=== PATIENT | female | born 1990 | race Caucasian/White ===

== ENCOUNTER 2017-05-09 15:26 | Emergency (ER) | payer MEDICAID ==
[~2017-05-09] VITALS: Ht 152.4 cm; Wt 81.6 kg
[~2017-05-09 15:26] MED LIST: AA/A14DR7 OT; ACE3 PO; ACET-1966 PO; ACET-3017 PO; ADV100/50 INH; ALB17R INH; AMO500 PO; AMOX-559 PO; ANTIBIOTIC; AUG875 PO; AZI250 PO; BACDS PO; BEN100 PO; BUPR-472 PO; CEP500 PO; CEPH500C24 PO; CEPH500T7 PO; CIP500 PO; CITA-137 PO; CLIN150C15 PO; CYC10 PO; CYCL10TA29 PO; DIC50 PO; DICY-42 PO; DOXY20PT PO; ESCI20TA38 PO; ETON68IM SQ; FIO PO; FLU100 FT; FLUO-201 PO; GABA-490 PO; GABA-549 PO; GUAI1200 PO; HYDR-3140 PO; HYDR-4309 PO; HYDR25CA83 PO; HYDR473S4 PO; IBU200 PO; IBU600 PO; IBU800 PO; IBUP-1618 PO; KET10 PO; LACT1CAP6 PO; LANS30CA70 PO; LEV112 PO; LEVO-3 PO; LEVO100V IVP; LEVO1IUD2 VG; LEVO75TA73 PO; LOM PO; LOR5 PO; LOR5/325 PO; MED150I IM; MET10 PO; METH-543 PO; METR-1 PO; MULT-885 PO; MULT1CAP41 PO; NAP500 PO; NAP550 PO; NARA2.5T2 PO; NIT100 PO; NOR10 PO; NORG1TAB74 PO; OMEP40CA48 PO; OND4 PO; ONDA4TAB PO; ONDA4TAB97 PO; OXYC1TAB54 PO; PAN40 PO; PANT40SU3 PO; PARO-243 PO; PARO-46 PO; PARO25TA; PER PO; PHEN-529 PO; PHEN120S18 PO; PRE10 PO; PRE20 PO; PREN-127 PO; PROP100T2 PO; SUMA25TA26 PO; TOPI-23 PO; TOPI50TA92 PO; TRA50 PO; TRAM-420 PO; TRAM-627 PO; [UNRECOGNIZED DRUG - CODE] MM; [UNRECOGNIZED DRUG - CODE] PO; [UNRECOGNIZED DRUG - CODE] PO; [UNRECOGNIZED DRUG - OTHER] PO; implanon
--- NOTE | 2017-05-09 15:29 | ER Report ---
History and Physical Time Seen By MD: 15:28 HPI/ROS CC: Vaginal bleeding HPI: 27-year-old female with the past medical history of low back pain, GI bleed, migraine, head injury, ovarian cyst, vaginal bleeding, UTI, foot surgery, hypothyroidism. Patient presents to the emergency department with vaginal bleeding and right lower quadrant abdominal cramping comes in saying it as an 8 out of 10. She's been nauseated without emesis. She states that it started with vaginal bleeding on 04/30/2016 and lasted for about 3 days. She then stopped her vaginal bleeding but the pain continued. Then for the last 2 days she's had heavy vaginal bleeding. She states that she is going through to heavy pads a day. She states normally she only has one pad for her menstrual cycle. She also states that her menses should not be ongoing at this time as she is usually regular. Movement and activity makes worse rest makes it somewhat better. ROS: 12 point review of systems essentially negative other than what's mentioned in history of present illness. NURSES AND OLD MEDICAL RECORDS: Reviewed PMH: Reviewed SURGICAL HX: Reviewed FAMILY HX: Noncontributory SOCIAL HX: She denies smoking alcohol or illicit drugs. She is and lives at home. VITAL SIGNS: Reviewed CONSTITUTIONAL: 27 year old female in minimal to moderate distress. PHYSICAL EXAM: HEENT: Pupils equal round reactive to light and accommodate, EOMI, tympanic membranes pearly white umbo present with good light reflex. Lips dry mucous membranes moist gums nonbleeding uvula midline and rises equally with phonation, oropharynx noninjected, teeth intact. NECK: Neck supple, thyroid not appreciated, anterior and posterior cervical lymphadenopathy not appreciated. Trachea midline and rises equally with phonation. CARDIAC: S1-S2 regular rate rhythm no murmurs rubs or gallops. LUNGS: Lungs clear bilaterally posteriorly in all tran. Good air movement. ABDOMEN: Abdomen soft, nondistended, no carotid tenderness no rebound tenderness, bowel sounds active in all 4 quadrants, no bruits noted, no CVA tenderness. PELVIC: Closed cervix slight brownish mucus. Patient was nontender with pelvic exam. MUSCULOSKELETAL: Strength 5 out of 5 x 4 extremities, no deformities noted. NEUROLOGIC: Patient alert and oriented by 3 Allergies: Coded Allergies: promethazine (Verified Allergy, Intermediate, RASH, 02/23/17) latex (Verified Allergy, Mild, RASH, 02/23/17) pertussis vaccine,fluid (Verified Adverse Reaction, Intermediate, PAIN/ FEVER, 02/23/17) Home Meds Active Scripts Tramadol Hcl (TRAMADOL HCL) 50 Mg Tablet, 50-100 MG PO Q6H Y for PAIN, #20 TAB Prov:WILD YING DO 05/18/16 Reported Medications Paroxetine Hcl (PAROXETINE HCL) 20 Mg Tablet, 20 MG PO QHS 11/12/16 Nortriptyline Hcl (NORTRIPTYLINE HCL) 10 Mg Cap, 10 MG PO HS, CAP 11/12/16 Topiramate (TOPIRAMATE) 50 Mg Tablet, 50 MG PO BID 11/12/16 Omeprazole (OMEPRAZOLE) 40 Mg Capsule.dr, 40 MG PO QDAY, CAP 11/12/16 Levothyroxine Sodium (LEVOTHYROXINE SODIUM) 75 Mcg Tablet, 75 MCG PO QDAY, TAB 07/27/16 Discontinued Reported Medications Norgestimate-Ethinyl Estradiol (SPRINTEC) 1 Each Tablet, 1 EACH PO QDAY 11/12/16 Hx Smoking: Yes (1/2 PPD X 5 YEARS) Smoking Status: Current: Every Day Smoker Exposure to Second Hand Smoke?: No Hx Substance Use Disorder: No Hx Alcohol Use: No Constitutional Vital Sign - Last 24 Hours 05/09/17 15:32 Pulse 87 Resp 18 B/P (MAP) 142/110 Pulse Ox 94 O2 Delivery Room Air Medical Decision Making Data Points Result Diagram: 05/09/17 1555 05/09/17 1555 Laboratory Hematology Test 05/09/17 15:35 05/09/17 15:55 Urine Color Yellow Urine Clarity Clear Urine pH 7.0 pH (4.8-9.5) Urine Specific [place] 1.015 Urine Protein Negative mg/dL (NEGATIVE) Urine Glucose (UA) Negative mg/dL (NEGATIVE) Urine Ketones Negative mg/dL (NEGATIVE) Urine Blood Small (NEGATIVE) Urine Nitrite Negative (NEGATIVE) Urine Bilirubin Negative (NEGATIVE) Urine Urobilinogen Negative mg/dL (0.2-1.9) Urine Leukocyte Esterase Negative (NEGATIVE) Urine RBC 5 /HPF (0-2/HPF) Urine WBC 1 /HPF (0-5/HPF) Urine Squamous Epithelial Cells Many /LPF (</=FEW) Urine Transitional Epithelial Cells Few /LPF (NONE-FEW) Urine Bacteria Negative /HPF (NONE-FEW) Urine Mucus None /HPF (NONE-FEW) Red Blood Count 4.66 M/uL (4.17-5.56) Mean Corpuscular Volume 90.0 fL (80.0-96.0) Mean Corpuscular Hemoglobin 31.1 pg (26.0-33.0) Mean Corpuscular Hemoglobin Concent 34.6 g/dL (32.0-36.0) Red Cell Distribution Width 12.8 % (11.5-14.5) Mean Platelet Volume 9.0 fL (7.2-11.1) Neutrophils (%) (Auto) 57.6 % (39.4-72.5) Lymphocytes (%) (Auto) 33.2 % (17.6-49.6) Monocytes (%) (Auto) 6.2 % (4.1-12.4) Eosinophils (%) (Auto) 2.5 % (0.4-6.7) Basophils (%) (Auto) 0.5 % (0.3-1.4) Nucleated RBC Relative Count (auto) 0.0 /100WBC Neutrophils # (Auto) 3.7 K/uL (2.0-7.4) Lymphocytes # (Auto) 2.1 K/uL (1.3-3.6) Monocytes # (Auto) 0.4 K/uL (0.3-1.0) Eosinophils # (Auto) 0.2 K/uL (0.0-0.5) Basophils # (Auto) 0.0 K/uL (0.0-0.1) Nucleated RBC Absolute Count (auto) 0.00 K/uL Prothrombin Time 14.2 seconds (12.0-14.4) Prothromb Time International Ratio 1.09 Activated Partial Thromboplast Time 34 seconds (23-35) Sodium Level 137 mmol/L (137-145) Potassium Level 3.6 mmol/L (3.5-5.0) Chloride Level 105 mmol/L (98-107) Carbon Dioxide Level 22 mmol/L (22-31) Blood Urea Nitrogen 7 mg/dl (7-18) Creatinine 0.70 mg/dl (0.52-1.04) Glomerular Filtration Rate Calc > 60.0 Random Glucose 80 mg/dl (75-110) Calcium Level 8.6 mg/dl (8.4-10.2) Total Bilirubin 0.4 mg/dl (0.2-1.3) Aspartate Amino Transf (AST/SGOT) 23 U/L (0-35) Alanine Aminotransferase (ALT/SGPT) 46 U/L (0-56) Alkaline Phosphatase 88 U/L (0-126) Total Protein 7.0 gm/dl (6.3-8.2) Albumin 3.8 g/dl (3.5-5.0) Human Chorionic Gonadotropin, Qual Negative (NEGATIVE) Human Chorionic Gonadotropin, Quant < 2 mIU/ml Chemistry Test 05/09/17 15:35 05/09/17 15:55 Urine Color Yellow Urine Clarity Clear Urine pH 7.0 pH (4.8-9.5) Urine Specific [place] 1.015 Urine Protein Negative mg/dL (NEGATIVE) Urine Glucose (UA) Negative mg/dL (NEGATIVE) Urine Ketones Negative mg/dL (NEGATIVE) Urine Blood Small (NEGATIVE) Urine Nitrite Negative (NEGATIVE) Urine Bilirubin Negative (NEGATIVE) Urine Urobilinogen Negative mg/dL (0.2-1.9) Urine Leukocyte Esterase Negative (NEGATIVE) Urine RBC 5 /HPF (0-2/HPF) Urine WBC 1 /HPF (0-5/HPF) Urine Squamous Epithelial Cells Many /LPF (</=FEW) Urine Transitional Epithelial Cells Few /LPF (NONE-FEW) Urine Bacteria Negative /HPF (NONE-FEW) Urine Mucus None /HPF (NONE-FEW) White Blood Count 6.4 k/uL (4.5-11.0) Red Blood Count 4.66 M/uL (4.17-5.56) Hemoglobin 14.5 g/dL (12.0-16.0) Hematocrit 41.9 % (34.0-47.0) Mean Corpuscular Volume 90.0 fL (80.0-96.0) Mean Corpuscular Hemoglobin 31.1 pg (26.0-33.0) Mean Corpuscular Hemoglobin Concent 34.6 g/dL (32.0-36.0) Red Cell Distribution Width 12.8 % (11.5-14.5) Platelet Count 281 K/uL (150-450) Mean Platelet Volume 9.0 fL (7.2-11.1) Neutrophils (%) (Auto) 57.6 % (39.4-72.5) Lymphocytes (%) (Auto) 33.2 % (17.6-49.6) Monocytes (%) (Auto) 6.2 % (4.1-12.4) Eosinophils (%) (Auto) 2.5 % (0.4-6.7) Basophils (%) (Auto) 0.5 % (0.3-1.4) Nucleated RBC Relative Count (auto) 0.0 /100WBC Neutrophils # (Auto) 3.7 K/uL (2.0-7.4) Lymphocytes # (Auto) 2.1 K/uL (1.3-3.6) Monocytes # (Auto) 0.4 K/uL (0.3-1.0) Eosinophils # (Auto) 0.2 K/uL (0.0-0.5) Basophils # (Auto) 0.0 K/uL (0.0-0.1) Nucleated RBC Absolute Count (auto) 0.00 K/uL Prothrombin Time 14.2 seconds (12.0-14.4) Prothromb Time International Ratio 1.09 Activated Partial Thromboplast Time 34 seconds (23-35) Glomerular Filtration Rate Calc > 60.0 Calcium Level 8.6 mg/dl (8.4-10.2) Total Bilirubin 0.4 mg/dl (0.2-1.3) Aspartate Amino Transf (AST/SGOT) 23 U/L (0-35) Alanine Aminotransferase (ALT/SGPT) 46 U/L (0-56) Alkaline Phosphatase 88 U/L (0-126) Total Protein 7.0 gm/dl (6.3-8.2) Albumin 3.8 g/dl (3.5-5.0) Human Chorionic Gonadotropin, Qual Negative (NEGATIVE) Human Chorionic Gonadotropin, Quant < 2 mIU/ml Coagulation Test 05/09/17 15:55 Prothrombin Time 14.2 seconds Prothromb Time International Ratio 1.09 Activated Partial Thromboplast Time 34 seconds Urinalysis Test 05/09/17 15:35 Urine Color Yellow Urine Clarity Clear Urine pH 7.0 pH (4.8-9.5) Urine Specific [place] 1.015 Urine Protein Negative mg/dL (NEGATIVE) Urine Glucose (UA) Negative mg/dL (NEGATIVE) Urine Ketones Negative mg/dL (NEGATIVE) Urine Blood Small (NEGATIVE) Urine Nitrite Negative (NEGATIVE) Urine Bilirubin Negative (NEGATIVE) Urine Urobilinogen Negative mg/dL (0.2-1.9) Urine Leukocyte Esterase Negative (NEGATIVE) Urine RBC 5 /HPF (0-2/HPF) Urine WBC 1 /HPF (0-5/HPF) Urine Squamous Epithelial Cells Many /LPF (</=FEW) Urine Transitional Epithelial Cells Few /LPF (NONE-FEW) Urine Bacteria Negative /HPF (NONE-FEW) Urine Mucus None /HPF (NONE-FEW) EKG/Imaging Imaging Ultrasound reveals ovarian cyst no other abnormalities. ED Course/Re-evaluation ED Course MDM includes ovarian cyst, , tubal , missed AB. This is most likely ovarian cyst. Decision to Disposition Date: May 09, 2017 Decision to Disposition Time: 17:10 Depart Departure Latest Vital Signs Vital Signs Date Time Temp Pulse Resp B/P (MAP) Pulse Ox O2 Delivery O2 Flow Rate FiO2 05/09/17 15:32 87 18 142/110 94 Room Air Impression: Primary Impression: Menstrual cramps Additional Impression: Ovarian cyst Condition: Improved Disposition: HOME OR SELF-CARE Referrals: TAPAN MEYER MD (PCP) Patient Instructions: Ovarian Cyst (DC) Additional Instructions: Follow-up with regular physician. Ibuprofen for the cramps. Problem Qualifiers RICHAR STEVENSON MD May 09, 2017 15:29
[2017-05-09] MEDS ORDERED: NS(*) 0.9% 1000 ML BAG 1,000 ML IV ONE (15:46)
[2017-05-09] MEDS ORDERED: ONDANSETRON 4 MG/2 ML VIAL IVP ONE (15:50)
[2017-05-09 16:00] VITALS: BP 118/79
[2017-05-09 16:09] LABS: PLATELET COUNT, AUTOMATED 281 K/uL (150-450)
[2017-05-09 16:19] LABS: INR 1.09
--- NOTE | 2017-05-09 17:36 | RADIOLOGY IMAGING REPORT ---
FACILITY: [facility] [place]IENT NAME: Felix Ghosh : 1990 MR: [id number] V: [id number] EXAM DATE: ORDERING PHYSICIAN: RICHAR STEVENSON TECHNOLOGIST: Location: [facility] - [place] Patient: Felix Ghosh : 1990 Visit/Account:[id number] Date of Sevice: 05/09/2017 EXAMINATION: Transvaginal pelvic ultrasound with duplex Doppler evaluation. HISTORY: Vaginal bleeding. Pain. COMPARISON: CT abdomen/pelvis with contrast 01/14/2017. Pelvic ultrasound 07/27/2016. LMP: 04/15/2017. Findings: Normal uterine size and morphology. The uterus is anteverted in position and measures 7.0 x 3.1 x 4. 2 cm. No focal uterine mass. The endometrium is homogeneous in appearance and measures 3 mm in double wall thickness. The right ovary measures 2.9 x 1.9 x 3.2 cm and contains multiple small follicles. The right ovary de monstrates normal vascularity with Doppler. The left ovary is suboptimally visualized due to deep positioning. There is a small cystic lesion tami ng the left adnexa, likely localizing to the left ovary. This measures measures approximately 2.0 x 1 .8 cm and contains a small internal daughter cyst measuring 0.7 cm. Likely rim of ovarian tissue surr ounding this cystic structure, with normal vascularity. No other abnormal adnexal masses. No free fluid in the pelvis. IMPRESSION: 1. Suboptimal visualization of the left ovary. A 2.0 cm left adnexal cyst likely localizes to the lef t ovary, containing a small internal daughter cyst. This statistically likely represents a small func tional cyst. Short-term ultrasound follow-up could be performed to evaluate for persistence. A negati ve test should be documented to exclude the possibility of ectopic . 2. Unremarkable uterus and right ovary. 3. No free fluid in the pelvis. Findings were discussed with RICHAR STEVENSON at 05/09/2017 5:29 PM. Report Dictated By: Kushal Hope MD at 05/09/2017 5:18 PM Report E-Signed By: Kushal Hope MD at 05/09/2017 5:33 PM WSN:[id number]
== END 2017-05-09 17:15 | disposition home or self-care (01) ==
LOC: ER 15:31
DX: N83.202 Unspecified ovarian cyst, left side (principal)
CPT/HCPCS: 76830; 81001; 84702; 84703; 85025; 85610; 85730; 86850; 86900; 86901; 96361; 96374; 99284; J2405; J7030; 82040; 82247; 82310; 82374; 82435; 82565; 82947; 84075; 84132; 84155; 84295; 84450; 84460; 84520

== ENCOUNTER 2017-08-29 12:09 | Emergency (ER) | payer MEDICAID ==
[2017-08-29 12:12] VITALS: BP 120/73
[2017-08-29] MEDS ORDERED: AMOX500T10 PO (12:35)
[2017-08-29] MEDS ORDERED: DICL-195 PO (12:35)
--- NOTE | 2017-08-29 12:36 | ER Report ---
History and Physical Time Seen By MD: 12:12 Hx. of Stated Complaint: woke up this morning with right, lower tooth pain. last tooth. states it bleeds when she touches it. doesn't have a dentist HPI/ROS CHIEF COMPLAINT: Toothache HISTORY OF PRESENT ILLNESS: Patient is a 27-year-old female coming by her mother , who presents to ED with complaint of tooth pain that started this morning. She states that she has had trouble thirteenths intermittently. She states she has not seen a dentist or scheduled visit. She denies any fever or swelling. She states that she has taken some ibuprofen and used Orajel with minimal relief. REVIEW OF SYSTEMS: HEENT: See history of present illness. Respiratory: No cough, no dyspnea. Cardiovascular: No chest pain, no palpitations. Musculoskeletal: No back pain. Allergies: Coded Allergies: promethazine (Verified Allergy, Intermediate, RASH, 08/29/17) latex (Verified Allergy, Mild, RASH, 08/29/17) pertussis vaccine,fluid (Verified Adverse Reaction, Intermediate, PAIN/ FEVER, 08/29/17) Home Meds Active Scripts Tramadol Hcl (TRAMADOL HCL) 50 Mg Tablet, 50-100 MG PO Q6H Y for PAIN, #20 TAB Prov:DEONNAWILD M DO 05/18/16 Reported Medications Paroxetine Hcl (PAROXETINE HCL) 20 Mg Tablet, 20 MG PO QHS 11/12/16 Nortriptyline Hcl (NORTRIPTYLINE HCL) 10 Mg Cap, 10 MG PO HS, CAP 11/12/16 Topiramate (TOPIRAMATE) 50 Mg Tablet, 50 MG PO BID 11/12/16 Omeprazole (OMEPRAZOLE) 40 Mg Capsule.dr, 40 MG PO QDAY, CAP 11/12/16 Levothyroxine Sodium (LEVOTHYROXINE SODIUM) 75 Mcg Tablet, 75 MCG PO QDAY, TAB 07/27/16 Reviewed Nurses Notes: Yes Old Medical Records Reviewed: Yes Hx Smoking: Yes (1/2 PPD X 5 YEARS) Smoking Status: Current: Every Day Smoker Exposure to Second Hand Smoke?: No Hx Substance Use Disorder: No Hx Alcohol Use: No Constitutional Vital Sign - Last 24 Hours 08/29/17 12:12 Temp 97.9 Pulse 97 Resp 12 B/P (MAP) 120/73 Pulse Ox 97 O2 Delivery Room Air Physical Exam General Appearance: The patient is alert, has no immediate need for airway protection and no signs of toxicity. Patient appears to be no acute distress. Eyes: Pupils equal and round no pallor or injection. ENT, Mouth: There is pain with palpation of the right lower molar but no surrounding erythema or swelling is appreciated. No obvious dental caries appreciated. Respiratory: There are no retractions, lungs are clear to auscultation. Cardiovascular: Regular rate and rhythm. Skin: Warm and dry, no rashes. Medical Decision Making ED Course/Re-evaluation ED Course It appears patient is having some tooth pain. It is possible that she may have some infectious process so will prescribe antibiotics and diclofenac for pain. Decision to Disposition Date: Aug 29, 2017 Decision to Disposition Time: 12:33 Depart Departure Latest Vital Signs Vital Signs Date Time Temp Pulse Resp B/P (MAP) Pulse Ox O2 Delivery O2 Flow Rate FiO2 08/29/17 12:12 97.9 97 12 120/73 97 Room Air Impression: Primary Impression: Toothache Condition: Improved Disposition: HOME OR SELF-CARE Referrals: TAPAN MEYER MD (PCP) New Scripts Amoxicillin 500 Mg Tab (AMOXICILLIN 500 MG TAB) 500 Mg Tablet 1 TAB PO Q8H, #30 TAB Prov: CHINYERE GIBBONS PA-C 08/29/17 Diclofenac Sodium (DICLOFENAC SODIUM) 75 Mg Tablet. 75 MG PO BID, #12 TAB Prov: CHINYERE GIBBONS PA-C 08/29/17 Departure Forms: Medications Reconciliation, Patient Portal Information, ER Transition Record Patient Instructions: Toothache (ED) Additional Instructions: Stay well-hydrated. Follow-up with dentist as soon as possible. If having any worsening or concerning symptoms may return the Emergency Department. CHINYERE GIBBONS PA-C Aug 29, 2017 12:36
== END 2017-08-29 12:46 | disposition home or self-care (01) ==
LOC: ER 12:10
DX: K08.89 Other specified disorders of teeth and supporting structures (principal); F17.210 Nicotine dependence, cigarettes, uncomplicated
CPT/HCPCS: 99282

== ENCOUNTER 2017-09-29 19:03 | Emergency (ER) | payer SELFPAY ==
[~2017-09-29 19:03] MED LIST changes: +AMOX500T10 PO; +DICL-195 PO
--- NOTE | 2017-09-29 19:19 | ER Report ---
History and Physical Time Seen By MD: 19:18 Hx. of Stated Complaint: patient states that she has buring pain when she urinates; patient also states that she has pain in her lower pubic area; states it started today HPI/ROS CHIEF COMPLAINT: Burning with urination HISTORY OF PRESENT ILLNESS: 27-year-old female patient presents to emergency room with complaint of burning with urination. Patient states that she woke up this morning and when she urinated had burning with urination. Patient states that has persisted throughout the day. She is drink lots of water. She states the burning has become more constant and states that she is having burning all the time. Patient states that she's not had any fevers or chills. She denies having any back pain or nausea. Patient states she did take some ibuprofen for this with no improvement. Allergies: Coded Allergies: promethazine (Verified Allergy, Intermediate, RASH, 08/29/17) latex (Verified Allergy, Mild, RASH, 08/29/17) pertussis vaccine,fluid (Verified Adverse Reaction, Intermediate, PAIN/ FEVER, 08/29/17) Home Meds Active Scripts Phenazopyridine Hcl (PHENAZOPYRIDINE HCL) 100 Mg Tablet, 100 MG PO TID Y for PAIN, #12 TAB Prov:MARKEL GAN [facility] 09/29/17 Sulfamethoxazole/Trimet 800-160 Mg Tab (BACTRIM DS TABLET) 1 Each Tablet, 1 TAB PO Q12H, #14 TAB Prov:MARKEL GAN [facility] 09/29/17 Tramadol Hcl (TRAMADOL HCL) 50 Mg Tablet, 50-100 MG PO Q6H Y for PAIN, #20 TAB Prov:WILD YING DO 05/18/16 Reported Medications Paroxetine Hcl (PAROXETINE HCL) 20 Mg Tablet, 20 MG PO QHS 11/12/16 Nortriptyline Hcl (NORTRIPTYLINE HCL) 10 Mg Cap, 10 MG PO HS, CAP 11/12/16 Topiramate (TOPIRAMATE) 50 Mg Tablet, 50 MG PO BID 11/12/16 Omeprazole (OMEPRAZOLE) 40 Mg Capsule.dr, 40 MG PO QDAY, CAP 11/12/16 Levothyroxine Sodium (LEVOTHYROXINE SODIUM) 75 Mcg Tablet, 75 MCG PO QDAY, TAB 07/27/16 Discontinued Scripts Amoxicillin 500 Mg Tab (AMOXICILLIN 500 MG TAB) 500 Mg Tablet, 1 TAB PO Q8H, # 30 TAB Prov:LAMONTAYAN MALIKPenny Romo PA-C 08/29/17 Diclofenac Sodium (DICLOFENAC SODIUM) 75 Mg Tablet.dr, 75 MG PO BID, #12 TAB Prov:AYAN GIBBONSPenny Romo PA-C 08/29/17 Past Medical/Surgical History Patient has a past medical history of migraines, asthma, volvulus, ovarian cyst , dislocated right hip, arthritis, right elbow fracture,, fracture, hypothyroidism, depression, suicide attempt. Patient has a surgical history of right ankle reconstruction, tonsillectomy, adenoidectomy. Hx Smoking: Yes (1/2 PPD X 5 YEARS) Smoking Status: Current: Every Day Smoker Exposure to Second Hand Smoke?: No Hx Substance Use Disorder: No Hx Alcohol Use: No Constitutional Vital Sign - Last 24 Hours 09/29/17 19:14 Temp 99.5 Pulse 95 Resp 18 B/P (MAP) 117/84 Pulse Ox 97 O2 Delivery Room Air Physical Exam General Appearance: The patient is alert, has no immediate need for airway protection and no current signs of toxicity. ENT: Tympanic membranes are pearly-willoughby, auditory canals are patent, mucous membranes moist. Respiratory: Chest is non tender, lungs are clear to auscultation. Cardiac: regular rate and rhythm Gastrointestinal: Abdomen is soft and non tender, no masses, bowel sounds normal. No CVA tenderness Musculoskeletal: Neck: Neck is supple and non tender. Extremities have full range of motion and are non tender. Skin: No rashes or lesions. DIFFERENTIAL DIAGNOSIS: After history and physical exam differential diagnosis was considered for urinary tract infection, dysuria. Medical Decision Making Data Points Laboratory Hematology Test 09/29/17 19:15 Urine Color Yellow Urine Clarity Slightly-cloudy Urine pH 5.0 pH (4.8-9.5) Urine Specific [place] 1.027 Urine Protein Negative mg/dL (NEGATIVE) Urine Glucose (UA) Negative mg/dL (NEGATIVE) Urine Ketones Negative mg/dL (NEGATIVE) Urine Blood Negative (NEGATIVE) Urine Nitrite Negative (NEGATIVE) Urine Bilirubin Negative (NEGATIVE) Urine Urobilinogen Negative mg/dL (0.2-1.9) Urine Leukocyte Esterase Moderate (NEGATIVE) Urine RBC 1 /HPF (0-2/HPF) Urine WBC 64 /HPF (0-5/HPF) Urine Squamous Epithelial Cells Many /LPF (</=FEW) Urine Transitional Epithelial Cells Many /LPF (NONE-FEW) Urine Bacteria Few /HPF (NONE-FEW) Urine Mucus Few /HPF (NONE-FEW) Chemistry Test 09/29/17 19:15 Urine Color Yellow Urine Clarity Slightly-cloudy Urine pH 5.0 pH (4.8-9.5) Urine Specific [place] 1.027 Urine Protein Negative mg/dL (NEGATIVE) Urine Glucose (UA) Negative mg/dL (NEGATIVE) Urine Ketones Negative mg/dL (NEGATIVE) Urine Blood Negative (NEGATIVE) Urine Nitrite Negative (NEGATIVE) Urine Bilirubin Negative (NEGATIVE) Urine Urobilinogen Negative mg/dL (0.2-1.9) Urine Leukocyte Esterase Moderate (NEGATIVE) Urine RBC 1 /HPF (0-2/HPF) Urine WBC 64 /HPF (0-5/HPF) Urine Squamous Epithelial Cells Many /LPF (</=FEW) Urine Transitional Epithelial Cells Many /LPF (NONE-FEW) Urine Bacteria Few /HPF (NONE-FEW) Urine Mucus Few /HPF (NONE-FEW) Urinalysis Test 09/29/17 19:15 Urine Color Yellow Urine Clarity Slightly-cloudy Urine pH 5.0 pH (4.8-9.5) Urine Specific [place] 1.027 Urine Protein Negative mg/dL (NEGATIVE) Urine Glucose (UA) Negative mg/dL (NEGATIVE) Urine Ketones Negative mg/dL (NEGATIVE) Urine Blood Negative (NEGATIVE) Urine Nitrite Negative (NEGATIVE) Urine Bilirubin Negative (NEGATIVE) Urine Urobilinogen Negative mg/dL (0.2-1.9) Urine Leukocyte Esterase Moderate (NEGATIVE) Urine RBC 1 /HPF (0-2/HPF) Urine WBC 64 /HPF (0-5/HPF) Urine Squamous Epithelial Cells Many /LPF (</=FEW) Urine Transitional Epithelial Cells Many /LPF (NONE-FEW) Urine Bacteria Few /HPF (NONE-FEW) Urine Mucus Few /HPF (NONE-FEW) ED Course/Re-evaluation ED Course Patient was admitted to an exam room, history of physical or obtained. Differential diagnoses were considered. On examination lungs are clear, heart is regular, abdomen soft nontender. Patient had no CVA tenderness. A urinalysis was obtained. Patient was given a dose of Pyridium here in the emergency room to help with her discomfort. Urinalysis shows large leukocyte esterase with 64 white blood cells per high-power field. A culture was ordered. Patient will be prescribed Bactrim DS which she stated twice a day for the next 7 days. We will have him discharge patient home at this time. Patient verbalized understanding and agreement. Decision to Disposition Date: September 29, 2017 Decision to Disposition Time: 19:50 Depart Departure Latest Vital Signs Vital Signs Date Time Temp Pulse Resp B/P (MAP) Pulse Ox O2 Delivery O2 Flow Rate FiO2 09/29/17 19:14 99.5 95 18 117/84 97 Room Air Impression: Primary Impression: Urinary tract infection Condition: Improved Disposition: HOME OR SELF-CARE Referrals: TAPAN MEYER MD (PCP) New Scripts Phenazopyridine Hcl (PHENAZOPYRIDINE HCL) 100 Mg Tablet 100 MG PO TID Y for PAIN, #12 TAB Prov: MARKEL GAN 09/29/17 Sulfamethoxazole/Trimet 800-160 Mg Tab (BACTRIM DS TABLET) 1 Each Tablet 1 TAB PO Q12H, #14 TAB Prov: MARKEL GAN 09/29/17 Patient Instructions: Urinary Tract Infection in Women (ED) Additional Instructions: Increase fluid intake. Get plenty of rest. Follow up with [facility] next week to make sure that the infection has cleared. Return to the ER if condition worsens. Problem Qualifiers Primary Impression: Urinary tract infection Urinary tract infection type: acute cystitis Hematuria presence: without hematuria Qualified Codes: N30.00 - Acute cystitis without hematuria MARKEL GAN September 29, 2017 19:19
[2017-09-29] MEDS ORDERED: PHENAZOPYRIDINE 200 MG TAB PO ONE (19:25)
[2017-09-29] MEDS ORDERED: SULF-198 PO (19:52)
[2017-09-29] MEDS ORDERED: PHEN100T27 PO (19:52)
[2017-09-29 20:01] VITALS: BP 122/77
== END 2017-09-29 20:01 | disposition home or self-care (01) ==
LOC: ER 19:45
DX: N30.00 Acute cystitis without hematuria (principal)
CPT/HCPCS: 81001; 87077; 87088; 87186; 99282

== ENCOUNTER 2017-10-02 15:11 | Emergency (ER) | payer SELFPAY ==
[~2017-10-02 15:11] MED LIST changes: +PHEN100T27 PO; +SULF-198 PO
--- NOTE | 2017-10-02 15:24 | ER Report ---
History and Physical Time Seen By MD: 15:23 HPI/ROS CHIEF COMPLAINT: Abdominal pain HISTORY OF PRESENT ILLNESS: 27-year-old female patient presents to emergency room with complaint of abdominal pain. Patient states that she has been having pain for the last several days. She was seen 3 days ago by myself with complaints of urinary tract infection. She states that the pain has persisted and seems to have gotten worse. She states that the pain is down in the lower pelvis. She denies having any fevers, however she states that she did have chills. She denies any nausea or vomiting. She is concerned that she may need to be on a different antibiotic. She states she does not feel like she is getting any better. Also states that she feels like she is having a lot of burning with urination, she states that she is having significant amounts of pain when urination. REVIEW OF SYSTEMS: Respiratory: No cough, no dyspnea. Cardiovascular: No chest pain, no palpitations. Gastrointestinal: As noted above Musculoskeletal: No back pain. Allergies: Coded Allergies: promethazine (Verified Allergy, Intermediate, RASH, 08/29/17) latex (Verified Allergy, Mild, RASH, 08/29/17) pertussis vaccine,fluid (Verified Adverse Reaction, Intermediate, PAIN/ FEVER, 08/29/17) Home Meds Active Scripts Phenazopyridine Hcl (PHENAZOPYRIDINE HCL) 100 Mg Tablet, 100 MG PO TID Y for PAIN, #12 TAB Prov:MARKEL GAN [facility] 09/29/17 Sulfamethoxazole/Trimet 800-160 Mg Tab (BACTRIM DS TABLET) 1 Each Tablet, 1 TAB PO Q12H, #14 TAB Prov:MARKEL GAN [facility] 09/29/17 Tramadol Hcl (TRAMADOL HCL) 50 Mg Tablet, 50-100 MG PO Q6H Y for PAIN, #20 TAB Prov:WILD YING DO 05/18/16 Reported Medications Paroxetine Hcl (PAROXETINE HCL) 20 Mg Tablet, 20 MG PO QHS 11/12/16 Nortriptyline Hcl (NORTRIPTYLINE HCL) 10 Mg Cap, 10 MG PO HS, CAP 11/12/16 Topiramate (TOPIRAMATE) 50 Mg Tablet, 50 MG PO BID 11/12/16 Omeprazole (OMEPRAZOLE) 40 Mg Capsule.dr, 40 MG PO QDAY, CAP 11/12/16 Levothyroxine Sodium (LEVOTHYROXINE SODIUM) 75 Mcg Tablet, 75 MCG PO QDAY, TAB 07/27/16 Discontinued Scripts Amoxicillin 500 Mg Tab (AMOXICILLIN 500 MG TAB) 500 Mg Tablet, 1 TAB PO Q8H, # 30 TAB Prov:CHINYERE GIBBONS PA-C 08/29/17 Diclofenac Sodium (DICLOFENAC SODIUM) 75 Mg Tablet.dr, 75 MG PO BID, #12 TAB Prov:CHINYERE GIBBONS PA-C 08/29/17 Past Medical/Surgical History Patient has a past medical history of migraines, asthma, volvulus, ovarian cyst , dislocated right hip, arthritis, right elbow fracture, broken tailbone, hypothyroidism, depression. Patient has a surgical history of tonsillectomy and adenoidectomy, reconstruction of right ankle, IUD placed. Patient has a family medical history of cancer, diabetes. Reviewed Nurses Notes: Yes Hx Smoking: Yes (1/2 PPD X 5 YEARS) Smoking Status: Current: Every Day Smoker Exposure to Second Hand Smoke?: No Hx Substance Use Disorder: No Hx Alcohol Use: No Constitutional Vital Sign - Last 24 Hours 10/02/17 10/02/17 10/02/17 10/02/17 15:22 15:23 15:26 15:30 Temp 98.6 Pulse 100 89 Resp 16 B/P (MAP) 115/77 (90) 115/77 123/77 (92) Pulse Ox 98 99 O2 Delivery Room Air 10/02/17 10/02/17 10/02/17 10/02/17 15:41 15:56 16:00 16:11 Pulse 91 79 B/P (MAP) 109/72 (84) Pulse Ox 99 97 99 10/02/17 10/02/17 10/02/17 10/02/17 16:30 17:00 17:05 17:16 B/P (MAP) 100/59 (73) 96/64 (75) 107/67 (80) Pulse Ox 100 Physical Exam General Appearance: The patient is alert, has no immediate need for airway protection and no current signs of toxicity. ENT: Tympanic membranes are pearly-willoughby, auditory canals are patent, mucus mucous membranes are moist. Respiratory: Chest is non tender, lungs are clear to auscultation. Cardiac: regular rate and rhythm Gastrointestinal: Abdomen is soft and tender in the suprapubic region, no masses , bowel sounds normal. Musculoskeletal: Neck: Neck is supple and non tender. Extremities have full range of motion and are non tender. Skin: No rashes or lesions. DIFFERENTIAL DIAGNOSIS: After history and physical exam differential diagnosis was considered for abdominal pain including but not limited to appendicitis, cholecystitis, gastritis and urinary tract infection. Medical Decision Making Data Points Result Diagram: 10/02/17 1556 10/02/17 1556 Laboratory Hematology Test 10/02/17 15:25 10/02/17 15:56 Urine Color Celsa Urine Clarity Clear Urine pH 6.0 pH (4.8-9.5) Urine Specific [place] 1.023 Urine Protein Negative mg/dL (NEGATIVE) Urine Glucose (UA) Negative mg/dL (NEGATIVE) Urine Ketones Negative mg/dL (NEGATIVE) Urine Blood Negative (NEGATIVE) Urine Nitrite Positive (NEGATIVE) Urine Bilirubin Negative (NEGATIVE) Urine Urobilinogen 4.0 mg/dL (0.2-1.9) Urine Leukocyte Esterase Negative (NEGATIVE) Urine RBC 1 /HPF (0-2/HPF) Urine WBC 4 /HPF (0-5/HPF) Urine Squamous Epithelial Cells Few /LPF (</=FEW) Urine Bacteria Negative /HPF (NONE-FEW) Urine Mucus Few /HPF (NONE-FEW) Urine HCG, Qualitative Negative (NEGATIVE) Red Blood Count 4.89 M/uL (4.17-5.56) Mean Corpuscular Volume 90.6 fL (80.0-96.0) Mean Corpuscular Hemoglobin 31.3 pg (26.0-33.0) Mean Corpuscular Hemoglobin Concent 34.6 g/dL (32.0-36.0) Red Cell Distribution Width 13.2 % (11.5-14.5) Mean Platelet Volume 9.2 fL (7.2-11.1) Neutrophils (%) (Auto) 65.9 % (39.4-72.5) Lymphocytes (%) (Auto) 21.8 % (17.6-49.6) Monocytes (%) (Auto) 8.2 % (4.1-12.4) Eosinophils (%) (Auto) 3.5 % (0.4-6.7) Basophils (%) (Auto) 0.6 % (0.3-1.4) Nucleated RBC Relative Count (auto) 0.0 /100WBC Neutrophils # (Auto) 5.0 K/uL (2.0-7.4) Lymphocytes # (Auto) 1.7 K/uL (1.3-3.6) Monocytes # (Auto) 0.6 K/uL (0.3-1.0) Eosinophils # (Auto) 0.3 K/uL (0.0-0.5) Basophils # (Auto) 0.0 K/uL (0.0-0.1) Nucleated RBC Absolute Count (auto) 0.00 K/uL Sodium Level 139 mmol/L (137-145) Potassium Level 3.9 mmol/L (3.5-5.0) Chloride Level 102 mmol/L (98-107) Carbon Dioxide Level 23 mmol/L (22-31) Blood Urea Nitrogen 14 mg/dl (7-18) Creatinine 1.30 mg/dl (0.52-1.04) Glomerular Filtration Rate Calc 49.9 Random Glucose 82 mg/dl (75-110) Calcium Level 9.6 mg/dl (8.4-10.2) Total Bilirubin 0.3 mg/dl (0.2-1.3) Aspartate Amino Transf (AST/SGOT) 29 U/L (0-35) Alanine Aminotransferase (ALT/SGPT) 46 U/L (0-56) Alkaline Phosphatase 84 U/L (0-126) Total Protein 7.8 gm/dl (6.3-8.2) Albumin 4.4 g/dl (3.5-5.0) Chemistry Test 10/02/17 15:25 10/02/17 15:56 Urine Color Celsa Urine Clarity Clear Urine pH 6.0 pH (4.8-9.5) Urine Specific [place] 1.023 Urine Protein Negative mg/dL (NEGATIVE) Urine Glucose (UA) Negative mg/dL (NEGATIVE) Urine Ketones Negative mg/dL (NEGATIVE) Urine Blood Negative (NEGATIVE) Urine Nitrite Positive (NEGATIVE) Urine Bilirubin Negative (NEGATIVE) Urine Urobilinogen 4.0 mg/dL (0.2-1.9) Urine Leukocyte Esterase Negative (NEGATIVE) Urine RBC 1 /HPF (0-2/HPF) Urine WBC 4 /HPF (0-5/HPF) Urine Squamous Epithelial Cells Few /LPF (</=FEW) Urine Bacteria Negative /HPF (NONE-FEW) Urine Mucus Few /HPF (NONE-FEW) Urine HCG, Qualitative Negative (NEGATIVE) White Blood Count 7.6 k/uL (4.5-11.0) Red Blood Count 4.89 M/uL (4.17-5.56) Hemoglobin 15.3 g/dL (12.0-16.0) Hematocrit 44.3 % (34.0-47.0) Mean Corpuscular Volume 90.6 fL (80.0-96.0) Mean Corpuscular Hemoglobin 31.3 pg (26.0-33.0) Mean Corpuscular Hemoglobin Concent 34.6 g/dL (32.0-36.0) Red Cell Distribution Width 13.2 % (11.5-14.5) Platelet Count 240 K/uL (150-450) Mean Platelet Volume 9.2 fL (7.2-11.1) Neutrophils (%) (Auto) 65.9 % (39.4-72.5) Lymphocytes (%) (Auto) 21.8 % (17.6-49.6) Monocytes (%) (Auto) 8.2 % (4.1-12.4) Eosinophils (%) (Auto) 3.5 % (0.4-6.7) Basophils (%) (Auto) 0.6 % (0.3-1.4) Nucleated RBC Relative Count (auto) 0.0 /100WBC Neutrophils # (Auto) 5.0 K/uL (2.0-7.4) Lymphocytes # (Auto) 1.7 K/uL (1.3-3.6) Monocytes # (Auto) 0.6 K/uL (0.3-1.0) Eosinophils # (Auto) 0.3 K/uL (0.0-0.5) Basophils # (Auto) 0.0 K/uL (0.0-0.1) Nucleated RBC Absolute Count (auto) 0.00 K/uL Glomerular Filtration Rate Calc 49.9 Calcium Level 9.6 mg/dl (8.4-10.2) Total Bilirubin 0.3 mg/dl (0.2-1.3) Aspartate Amino Transf (AST/SGOT) 29 U/L (0-35) Alanine Aminotransferase (ALT/SGPT) 46 U/L (0-56) Alkaline Phosphatase 84 U/L (0-126) Total Protein 7.8 gm/dl (6.3-8.2) Albumin 4.4 g/dl (3.5-5.0) Urinalysis Test 10/02/17 15:25 Urine Color Celsa Urine Clarity Clear Urine pH 6.0 pH (4.8-9.5) Urine Specific [place] 1.023 Urine Protein Negative mg/dL (NEGATIVE) Urine Glucose (UA) Negative mg/dL (NEGATIVE) Urine Ketones Negative mg/dL (NEGATIVE) Urine Blood Negative (NEGATIVE) Urine Nitrite Positive (NEGATIVE) Urine Bilirubin Negative (NEGATIVE) Urine Urobilinogen 4.0 mg/dL (0.2-1.9) Urine Leukocyte Esterase Negative (NEGATIVE) Urine RBC 1 /HPF (0-2/HPF) Urine WBC 4 /HPF (0-5/HPF) Urine Squamous Epithelial Cells Few /LPF (</=FEW) Urine Bacteria Negative /HPF (NONE-FEW) Urine Mucus Few /HPF (NONE-FEW) Urine HCG, Qualitative Negative (NEGATIVE) EKG/Imaging Imaging CT abdomen and pelvis with IV contrast Indication: Abdominal pain. Recent UTI. Comparison: 01/14/2017.. Technique: Axial CT images were obtained through the abdomen and pelvis during injection of nonionic iodinated intravenous contrast. Reformatted coronal and sagittal images were also obtained. One of the following dose optimization techniques was utilized in the performance of this exam: Automated exposure control; adjustment of the mA and/ or kV according to the patient's size; or use of an iterative reconstruction technique. Specific details can be referenced in the facility's radiology CT exam operational policy. Contrast: 75 ml of Isovue-370 IV contrast. Findings: Lower lung tran: Limited views lower lung field are unremarkable. Liver: No focal parenchymal abnormality of the liver. Biliary: Gallbladder appears unremarkable as well as the intra and extra hepatic biliary system. Pancreas: Normal appearance. Spleen: Normal appearance. Adrenal glands: Unremarkable. Kidneys / retroperitoneum: There is a 2 mm stone collecting system left kidney without hydronephrosis. Right kidney shows no appreciable stones or hydronephrosis. No discrete renal lesions. Bowel / peritoneum / mesenteries: Visualized gastrointestinal tract, including the appendix, within normal limits. Stomach is unremarkable. No free air, free fluid, fluid collections or areas of inflammation. Small umbilical hernia containing fat. Lymph node assessment: No pathologic adenopathy identified. Pelvic structures: Appear unremarkable. Vessels: No significant atherosclerotic calcifications seen throughout a nonaneurysmal abdominal aorta and branches. Musculoskeletal / Body wall: No acute or aggressive osseous abnormality. IMPRESSION: 1. No acute intra-abdominal abnormality. The appendix is normal. 2. Nonobstructing left renal calculi. Report Dictated By: Jose Manuel Rosario at 10/02/2017 4:44 PM Report E-Signed By: Jose Manuel Rosario at 10/02/2017 4:50 PM ED Course/Re-evaluation ED Course Patient was admitted to an exam room, history and physical were obtained. Differential diagnoses were considered. On examination patient has abdominal tenderness. A repeat urinalysis, CBC, CMP, CT scan of abdomen and pelvis was done. Lab results were unremarkable, urinalysis did show positive nitrates, however there is a negative leukocyte esterase with only 4 white blood cells per high-power field. CT scan of the abdomen and pelvis showed no acute findings , there was a kidney stone in the right kidney, but is not into the ureter yet. I discussed findings with patient and her mother. We will go ahead and discharge her home at this time. I would like her to follow-up with her primary care provider. Mother was very concerned and wants wondering if there is anything that can be done with pain. With the patient being on a treatment plan I'm unable to that at this time and will have her follow-up with primary care for further workup. Decision to Disposition Date: October 02, 2017 Decision to Disposition Time: 17:11 Depart Departure Latest Vital Signs Vital Signs Date Time Temp Pulse Resp B/P (MAP) Pulse Ox O2 Delivery O2 Flow Rate FiO2 10/02/17 17:16 107/67 (80) 10/02/17 17:05 100 10/02/17 16:11 79 10/02/17 15:23 98.6 16 Room Air Impression: Primary Impression: Abdominal pain Additional Impression: Urinary tract infection Condition: Improved Disposition: HOME OR SELF-CARE Referrals: TAPAN MEYER MD (PCP) Patient Instructions: Abdominal Pain (ED) Additional Instructions: Increase fluid intake. Get plenty of rest. Follow up with your primary care provider in the next week as scheduled. Return to the ER if condition worsens. Continue with current medications. Make sure that you finish your antibiotics. Problem Qualifiers Primary Impression: Abdominal pain Abdominal location: lower abdomen, unspecified Qualified Codes: R10.30 - Lower abdominal pain, unspecified Additional Impression: Urinary tract infection Urinary tract infection type: acute cystitis Hematuria presence: without hematuria Qualified Codes: N30.00 - Acute cystitis without hematuria MARKEL GAN October 02, 2017 15:24
[2017-10-02] MEDS ORDERED: NS(*) 0.9% 1000 ML BAG 1,000 ML IV ONE (15:35)
[2017-10-02 16:05] LABS: PLATELET COUNT, AUTOMATED 240 K/uL (150-450)
[2017-10-02] MEDS ORDERED: IOPAMIDOL 76% 75 ML INFUS BTL 75 ML ONE (16:12)
--- NOTE | 2017-10-02 16:54 | RADIOLOGY IMAGING REPORT ---
FACILITY: [facility] PATIENT NAME: Felix Ghosh : 1990 MR: [id number] V: [id number] EXAM DATE: ORDERING PHYSICIAN: MARKEL GAN TECHNOLOGIST: Location: [facility] [place] Patient: Felix Ghosh : 1990 Visit/Account:[id number] Date of Sevice: 10/02/2017 CT abdomen and pelvis with IV contrast Indication: Abdominal pain. Recent UTI. Comparison: 01/14/2017.. Technique: Axial CT images were obtained through the abdomen and pelvis during injection of nonioni c iodinated intravenous contrast. Reformatted coronal and sagittal images were also obtained. One of the following dose optimization techniques was utilized in the performance of this exam: Autom ated exposure control; adjustment of the mA and/or kV according to the patient's size; or use of an i terative reconstruction technique. Specific details can be referenced in the facility's radiology C T exam operational policy. Contrast: 75 ml of Isovue-370 IV contrast. Findings: Lower lung tran: Limited views lower lung field are unremarkable. Liver: No focal parenchymal abnormality of the liver. Biliary: Gallbladder appears unremarkable as well as the intra and extra hepatic biliary system. Pancreas: Normal appearance. Spleen: Normal appearance. Adrenal glands: Unremarkable. Kidneys / retroperitoneum: There is a 2 mm stone collecting system left kidney without hydronephrosis . Right kidney shows no appreciable stones or hydronephrosis. No discrete renal lesions. Bowel / peritoneum / mesenteries: Visualized gastrointestinal tract, including the appendix, within n ormal limits. Stomach is unremarkable. No free air, free fluid, fluid collections or areas of inflammation. Small umbilical hernia containin g fat. Lymph node assessment: No pathologic adenopathy identified. Pelvic structures: Appear unremarkable. Vessels: No significant atherosclerotic calcifications seen throughout a nonaneurysmal abdominal aort a and branches. Musculoskeletal / Body wall: No acute or aggressive osseous abnormality. IMPRESSION: 1. No acute intra-abdominal abnormality. The appendix is normal. 2. Nonobstructing left renal calculi. Report Dictated By: Jose Manuel Rosario at 10/02/2017 4:44 PM Report E-Signed By: Jose Manuel Rosario at 10/02/2017 4:50 PM WSN:[id number]
[2017-10-02 17:16] VITALS: BP 107/67
== END 2017-10-02 17:14 | disposition home or self-care (01) ==
LOC: ER 15:22
DX: N30.00 Acute cystitis without hematuria (principal); R10.30 Lower abdominal pain, unspecified
CPT/HCPCS: 74177; 81001; 81025; 85025; 96360; 99284; J7030; Q9967; 82040; 82247; 82310; 82374; 82435; 82565; 82947; 84075; 84132; 84155; 84295; 84450; 84460; 84520

== ENCOUNTER 2017-11-15 12:40 | Emergency (ER) | payer SELFPAY ==
[2017-11-15] MEDS ORDERED: KETOROLAC 30 MG/ML VIAL IM ONE (13:05)
--- NOTE | 2017-11-15 14:19 | RADIOLOGY IMAGING REPORT ---
[place] [facility] [place] Felix Ghosh : 1990 MR: [id number] V: [id number] EXAM DATE: ORDERING PHYSICIAN: CHINYERE GIBBONS TECHNOLOG[place] [facility] [place] Ghosh : 1990 Visit/Account:[id number] Date of Sevice: 11/15/2017 EXAMINATION: Right ankle radiographs 3 views HISTORY: Right ankle pain. Rolled ankle on stairs, surgery a month ago. COMPARISON: Right ankle radiographs from 02/23/2017. FINDINGS: AP, lateral and oblique views of the right ankle are obtained. Bones: No acute fracture or dislocation. Joint spaces: Negative. Hardware: Soft tissue anchors in the distal fibula are unchanged, without evidence of complication. Alignment: Normal. Soft tissues: Negative. IMPRESSION: 1. No acute right ankle fracture. 2. Soft tissue anchors in the right distal fibula are unchanged without evidence of complication. Report Dictated By: Lorrie Iglesias MD at 11/15/2017 2:14 PM Report E-Signed By: Lorrie Iglesias MD at 11/15/2017 2:16 PM WSN:[id number]
[2017-11-15 14:30] VITALS: BP 103/69
--- NOTE | 2017-11-15 14:31 | ER Report ---
History and Physical Time Seen By MD: 12:50 Hx. of Stated Complaint: pt stepped off stair and twisted right ankle, pt had surgery on right ankle 9 months ago HPI/ROS CHIEF COMPLAINT: Right ankle injury HISTORY OF PRESENT ILLNESS: Patient is a 27-year-old female presents to ED with complaint of right ankle injury that occurred about an hour ago. She states that she missed a step when she was walking and twisted her right ankle. She is concerned because she just had surgery on her right ankle tendon a few months ago. She states that she has noted some swelling but no bruising. She has not taken any medication for the pain. REVIEW OF SYSTEMS: Constitutional: No fever, no chills. Cardiovascular: No chest pain, no palpitations. Respiratory: No cough, no shortness of breath. Musculoskeletal: See history of present illness. Skin: No rashes. Neurological: No headache. Allergies: Coded Allergies: promethazine (Verified Allergy, Intermediate, RASH, 11/15/17) latex (Verified Allergy, Mild, RASH, 11/15/17) pertussis vaccine,fluid (Verified Adverse Reaction, Intermediate, PAIN/ FEVER, 11/15/17) Home Meds Reported Medications Paroxetine Hcl (PAROXETINE HCL) 20 Mg Tablet, 20 MG PO QHS 11/12/16 Nortriptyline Hcl (NORTRIPTYLINE HCL) 10 Mg Cap, 10 MG PO HS, CAP 11/12/16 Topiramate (TOPIRAMATE) 50 Mg Tablet, 50 MG PO BID 11/12/16 Omeprazole (OMEPRAZOLE) 40 Mg Capsule.dr, 40 MG PO QDAY, CAP 11/12/16 Levothyroxine Sodium (LEVOTHYROXINE SODIUM) 75 Mcg Tablet, 75 MCG PO QDAY, TAB 07/27/16 Discontinued Scripts Phenazopyridine Hcl (PHENAZOPYRIDINE HCL) 100 Mg Tablet, 100 MG PO TID Y for PAIN, #12 TAB Prov:MARKEL GAN 09/29/17 Sulfamethoxazole/Trimet 800-160 Mg Tab (BACTRIM DS TABLET) 1 Each Tablet, 1 TAB PO Q12H, #14 TAB Prov:MARKEL GAN 09/29/17 Tramadol Hcl (TRAMADOL HCL) 50 Mg Tablet, 50-100 MG PO Q6H Y for PAIN, #20 TAB Prov:WILD YING DO 05/18/16 Reviewed Nurses Notes: Yes Old Medical Records Reviewed: Yes Hx Smoking: Yes (1/2 PPD X 5 YEARS) Smoking Status: Current: Every Day Smoker Exposure to Second Hand Smoke?: No Hx Substance Use Disorder: No Hx Alcohol Use: No Constitutional Vital Sign - Last 24 Hours 11/15/17 12:53 Temp 98.5 Pulse 96 Resp 20 B/P (MAP) 128/92 Pulse Ox 96 O2 Delivery Room Air Physical Exam General Appearance: The patient is alert, has no immediate need for airway protection and no signs of toxicity. Patient appears to be no acute distress. Respiratory: There are no retractions, lungs are clear to auscultation. Cardiovascular: Regular rate and rhythm. Skin: Warm and dry, no rashes. Musculoskeletal: Neck is supple non tender. There is right lateral ankle pain with palpation. There is a surgical scar noted in this region. Minimal swelling is appreciated, no ecchymosis. PT and DP pulses are 2+ with normal capillary refill. Normal sensation. DIFFERENTIAL DIAGNOSIS: After history and physical exam differential diagnosis was considered for right ankle injury including sprain, tendon injury, fracture , contusion. Medical Decision Making EKG/Imaging Imaging Right Ankle Xrays: IMPRESSION: 1. No acute right ankle fracture. 2. Soft tissue anchors in the right distal fibula are unchanged without evidence of complication. Report Dictated By: Lorrie Iglesias MD at 11/15/2017 2:14 PM Report E-Signed By: Lorrie Iglesias MD at 11/15/2017 2:16 PM ED Course/Re-evaluation ED Course Will obtain right ankle x-rays. - 11/15/2017 2:28:47 pm - discussed x-ray results with patient. There appears to be no fracture. The soft tissue screws appear to be intact. Discussed that she might just have a right ankle sprain be given her tendon injury recently with surgery will have patient follow up with orthopedics as well. We'll also place the patient in a boot and crutches as needed. Decision to Disposition Date: Nov 15, 2017 Decision to Disposition Time: 14:29 Depart Departure Latest Vital Signs Vital Signs Date Time Temp Pulse Resp B/P (MAP) Pulse Ox O2 Delivery O2 Flow Rate FiO2 11/15/17 12:53 98.5 96 20 128/92 96 Room Air Impression: Primary Impression: Right ankle sprain Condition: Improved Disposition: HOME OR SELF-CARE Referrals: TAPAN MEYER MD (PCP) JESS MCNEIL MD Patient Instructions: Ankle Sprain (ED) Additional Instructions: Rest, ice, elevate. May use crutches as needed. Follow-up with orthopedic surgery in 2-3 days. If having any worsening or concerning symptoms may return to emergency department. Problem Qualifiers Primary Impression: Right ankle sprain Encounter type: initial encounter Involved ligament of ankle: unspecified ligament Qualified Codes: S93.401A - Sprain of unspecified ligament of right ankle, initial encounter CHINYERE GIBBONS PA-C Nov 15, 2017 14:31
== END 2017-11-15 14:40 | disposition home or self-care (01) ==
LOC: ER 12:53
DX: S93.401A Sprain of unspecified ligament of right ankle, initial encounter (principal); W18.43XA Slipping, tripping and stumbling without falling due to stepping from one level to another, initial encounter
CPT/HCPCS: 73610; 96372; 99283; J1885

== ENCOUNTER → 2017-11-17 | Outpatient (CLI) | payer SELFPAY ==
--- NOTE | 2017-11-17 16:28 | RADIOLOGY IMAGING REPORT ---
FACILITY: [facility] PATIENT NAME: Felix Ghosh : 1990 MR: [id number] V: [id number] EXAM DATE: ORDERING PHYSICIAN: KATIE SINGLETARY TECHNOLOGIST: Location: [facility] Patient: Felix Ghosh : 1990 Visit/Account:[id number] Date of Sevice: 11/17/2017 Technique: WRIST LEFT MIN 3 VIEW HISTORY: Left wrist joint pain Comparison studies: None FINDINGS: There is no acute fracture. The alignment of the left wrist is maintained. Soft tissues a re unremarkable. IMPRESSION: 1. No acute osseous process. Report Dictated By: Alcides Gandhi DO at 11/17/2017 4:22 PM Report E-Signed By: Alcides Gandhi DO at 11/17/2017 4:25 PM WSN:[id number]
== END ==
LOC: RAD 14:30
PROVIDERS: ATTEND Nurse Practitioner Family
DX: M25.532 Pain in left wrist (principal); Z91.81 History of falling

== ENCOUNTER 2018-01-29 20:00 | Emergency (ER) | payer OTHER ==
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
[2018-01-29] MEDS ORDERED: CHOL10005 PO (20:18)
[2018-01-29] MEDS ORDERED: SERT-181 PO (20:18)
[2018-01-29] MEDS ORDERED: OXYGENHOME INH (20:18)
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
[2018-01-29] MEDS ORDERED: KETOROLAC 60 MG/2 ML VIAL IM ONE (21:25)
[2018-01-29 21:30] VITALS: BP 96/76
== END 2018-01-29 21:51 | disposition home or self-care (01) ==
LOC: ER 20:25
DX: M54.2 Cervicalgia (principal); R51 Headache
CPT/HCPCS: 70450; 72125; 96372; 99284; J1885; L0172

== ENCOUNTER 2018-02-12 20:11 | Emergency (ER) | payer SELFPAY ==
[~2018-02-12 20:11] MED LIST changes: +CHOL10005 PO; +OXYGENHOME INH; +SERT-181 PO
--- NOTE | 2018-02-12 22:03 | ER Report ---
History and Physical Time Seen By MD: 22:03 Hx. of Stated Complaint: PT REPORTS THAT SHE THINKS SHE HAS A UTI. HAS PAIN WITH URINATION AND FREQUENCY. HPI/ROS CHIEF COMPLAINT: pain and burning with urination HISTORY OF PRESENT ILLNESS: This is a 28 year old female. She has had pain and burning with urination with urination starting this morning. NO fevers. No pain in her back. Has some lower abdominal pain. No nausea or vomiting. Tried over the counter medicine to help with burning without success. Allergies: Coded Allergies: promethazine (Verified Allergy, Intermediate, RASH, 01/29/18) latex (Verified Allergy, Mild, RASH, 01/29/18) pertussis vaccine,fluid (Verified Adverse Reaction, Intermediate, PAIN/FEVER, 01/29/18) Home Meds Active Scripts Tramadol Hcl (ULTRAM) 50 Mg Tablet, 50 MG PO Q6H PRN for PAIN, #8 TAB 0 Refills Prov:KANU ROLAND MD 02/12/18 Phenazopyridine Hcl (PHENAZOPYRIDINE HCL) 200 Mg Tablet, 200 MG PO TID PRN for PAIN, #10 TAB 0 Refills Prov:KANU ROLAND MD 02/12/18 Sulfamethoxazole/Trimet 800-160 Mg Tab (BACTRIM DS TABLET) 1 Each Tablet, 1 TAB PO Q12H, #14 TAB 0 Refills Prov:KANU ROLAND MD 02/12/18 Reported Medications Oxygen (OXYGEN) Inha, 2 L INH QHS, L 01/29/18 Sertraline Hcl (SERTRALINE HCL) 100 Mg Tablet, 1 TAB PO QDAY, TAB 01/29/18 Cholecalciferol (Vitamin D3) (VITAMIN D3) 1,000 Unit Tablet, 1000 UNIT PO QDAY, TAB 01/29/18 Topiramate (TOPIRAMATE) 50 Mg Tablet, 50 MG PO BID 11/12/16 Levothyroxine Sodium (LEVOTHYROXINE SODIUM) 75 Mcg Tablet, 75 MCG PO QDAY, TAB 07/27/16 Reviewed Nurses Notes: Yes Hx Smoking: Yes (1/2 PPD X 5 YEARS) Smoking Status: Current: Every Day Smoker Exposure to Second Hand Smoke?: No Hx Substance Use Disorder: No Hx Alcohol Use: No Constitutional Vital Sign - Last 24 Hours 02/12/18 20:36 Temp 97.7 Pulse 99 Resp 16 B/P (MAP) 114/84 Pulse Ox 94 O2 Delivery Room Air Physical Exam General Appearance: alert, no distress. Respiratory: Breathing easily Cardiac: regular rate and rhythm Gastrointestinal: Abdomen is soft, suprapubic discomfort. No CVA tenderness. Musculoskeletal: No back pain Skin: No rashes or lesions. DIFFERENTIAL DIAGNOSIS: After history and physical exam differential diagnosis was considered for likely urinary tract infection. Medical Decision Making Data Points Laboratory Hematology Test 02/12/18 20:25 Urine Color Yellow Urine Clarity Cloudy Urine pH 6.0 pH (4.8-9.5) Urine Specific [place] 1.021 Urine Protein 30 mg/dL (NEGATIVE) Urine Glucose (UA) Negative mg/dL (NEGATIVE) Urine Ketones Negative mg/dL (NEGATIVE) Urine Blood Moderate (NEGATIVE) Urine Nitrite Negative (NEGATIVE) Urine Bilirubin Negative (NEGATIVE) Urine Urobilinogen Negative mg/dL (0.2-1.9) Urine Leukocyte Esterase Large (NEGATIVE) Urine RBC 65 /HPF (0-2/HPF) Urine WBC 499 /HPF (0-5/HPF) Urine Squamous Epithelial Cells Many /LPF (</=FEW) Urine Bacteria Negative /HPF (NONE-FEW) Urine Mucus None /HPF (NONE-FEW) Chemistry Test 02/12/18 20:25 Urine Color Yellow Urine Clarity Cloudy Urine pH 6.0 pH (4.8-9.5) Urine Specific [place] 1.021 Urine Protein 30 mg/dL (NEGATIVE) Urine Glucose (UA) Negative mg/dL (NEGATIVE) Urine Ketones Negative mg/dL (NEGATIVE) Urine Blood Moderate (NEGATIVE) Urine Nitrite Negative (NEGATIVE) Urine Bilirubin Negative (NEGATIVE) Urine Urobilinogen Negative mg/dL (0.2-1.9) Urine Leukocyte Esterase Large (NEGATIVE) Urine RBC 65 /HPF (0-2/HPF) Urine WBC 499 /HPF (0-5/HPF) Urine Squamous Epithelial Cells Many /LPF (</=FEW) Urine Bacteria Negative /HPF (NONE-FEW) Urine Mucus None /HPF (NONE-FEW) Urinalysis Test 02/12/18 20:25 Urine Color Yellow Urine Clarity Cloudy Urine pH 6.0 pH (4.8-9.5) Urine Specific [place] 1.021 Urine Protein 30 mg/dL (NEGATIVE) Urine Glucose (UA) Negative mg/dL (NEGATIVE) Urine Ketones Negative mg/dL (NEGATIVE) Urine Blood Moderate (NEGATIVE) Urine Nitrite Negative (NEGATIVE) Urine Bilirubin Negative (NEGATIVE) Urine Urobilinogen Negative mg/dL (0.2-1.9) Urine Leukocyte Esterase Large (NEGATIVE) Urine RBC 65 /HPF (0-2/HPF) Urine WBC 499 /HPF (0-5/HPF) Urine Squamous Epithelial Cells Many /LPF (</=FEW) Urine Bacteria Negative /HPF (NONE-FEW) Urine Mucus None /HPF (NONE-FEW) ED Course/Re-evaluation ED Course Urinalysis obtained. Culture ordered. Pyridium, Bactrim ordered. Also gave Ultram for pain. Decision to Disposition Date: Feb 12, 2018 Decision to Disposition Time: 22:07 Depart Departure Latest Vital Signs Vital Signs Date Time Temp Pulse Resp B/P (MAP) Pulse Ox O2 Delivery O2 Flow Rate FiO2 02/12/18 20:36 97.7 99 16 114/84 94 Room Air Impression: Primary Impression: Urinary tract infection Condition: Improved Disposition: HOME OR SELF-CARE Referrals: TAPAN MEYER MD (PCP) New Scripts Tramadol Hcl (ULTRAM) 50 Mg Tablet 50 MG PO Q6H PRN for PAIN, #8 TAB 0 Refills Prov: KANU ROLAND MD 02/12/18 Phenazopyridine Hcl (PHENAZOPYRIDINE HCL) 200 Mg Tablet 200 MG PO TID PRN for PAIN, #10 TAB 0 Refills Prov: KANU ROLAND MD 02/12/18 Sulfamethoxazole/Trimet 800-160 Mg Tab (BACTRIM DS TABLET) 1 Each Tablet 1 TAB PO Q12H, #14 TAB 0 Refills Prov: KANU ROLAND MD 02/12/18 Patient Instructions: Urinary Tract Infection in Women (ED) Additional Instructions: Take Pyridium every 8 hours as needed for pain with urination. Take the antibiotic Bactrim DS twice a day for 7 days. Take Ultram 50mg every 6 hours as needed for pain. Increase fluid intake. Problem Qualifiers Primary Impression: Urinary tract infection Urinary tract infection type: site unspecified Hematuria presence: without hematuria Qualified Codes: N39.0 - Urinary tract infection, site not specified KANU ROLAND MD Feb 12, 2018 22:03
[2018-02-12] MEDS ORDERED: traMADol 50 MG TAB PO ONE (22:05)
[2018-02-12] MEDS ORDERED: PHENAZOPYRIDINE 200 MG TAB TH 2 TAB/BOTTLE PO ONE (22:05)
[2018-02-12] MEDS ORDERED: PHENAZOPYRIDINE 200 MG TAB PO ONE (22:05)
[2018-02-12] MEDS ORDERED: TRIMETH/SULFA DS 160-800MG TAB PO ONE (22:05)
[2018-02-12] MEDS ORDERED: traMADol 50 MG TAB TH 2 TAB/BOTTLE PO ONE (22:05)
[2018-02-12] MEDS ORDERED: TRIMETHOPRIM/SULFA 160-800 TH 2 TAB/BOTTLE PO ONE (22:05)
[2018-02-12] MEDS ORDERED: SULF-198 PO (22:10)
[2018-02-12] MEDS ORDERED: TRAM-627 PO (22:10)
[2018-02-12] MEDS ORDERED: PHEN200T32 PO (22:10)
[2018-02-12 22:25] VITALS: BP 122/78
== END 2018-02-12 22:30 | disposition home or self-care (01) ==
LOC: ER 20:58
DX: N39.0 Urinary tract infection, site not specified (principal)
CPT/HCPCS: 81001; 87088; 99283; C9399

== ENCOUNTER 2018-07-07 12:53 | Emergency (ER) | payer MEDICAID ==
[~2018-07-07 12:53] MED LIST changes: -HYDR-4309 PO; +HYDR-653 PO; +PHEN200T32 PO
--- NOTE | 2018-07-07 13:00 | ER Report ---
History and Physical Time Seen By MD: 12:59 HPI/ROS CHIEF COMPLAINT: Nausea and vomiting HISTORY OF PRESENT ILLNESS: This is a 28 year old female who presents to the emergency department for nausea and vomiting. Patient states she is 13 weeks p regnant, last menstrual period was around April 05, had a confirmed intrauterine ultrasound by her primary, several weeks ago. Patient has had no abdominal pain or cramping or vaginal bleeding, small increase in vaginal discharge otherwise unremarkable. No dysuria. No flank pain. She states that she's been vomiting regularly, no blood noted, she also states that she is not been able to sleep, has been in contact with her doctor, they suggested coming to the ER according the patient, I did tell the patient that its best to follow- up with her primary care provider when concerned about insomnia and . She's been taking [id number]-nerfsho locations that were recommended by her primary care provider. She has no fevers or chills. No chest pain or shortness of breath. No rashes. No meningismus. REVIEW OF SYSTEMS: Constitutional: No fever, no chills. Eyes: No discharge. ENT: No sore throat. Cardiovascular: No chest pain, no palpitations. Respiratory: No cough, no shortness of breath. Gastrointestinal: No abdominal pain, no vomiting. CIVIL ENGINEERING PROJECT DESIGNER: As above. Genitourinary: No hematuria. Musculoskeletal: No back pain. Skin: No rashes. Neurological: No headache. Allergies: Coded Allergies: promethazine (Verified Allergy, Intermediate, RASH, 07/07/18) latex (Verified Allergy, Mild, RASH, 07/07/18) pertussis vaccine,fluid (Verified Adverse Reaction, Intermediate, PAIN/FEVER, 07/07/18) Home Meds Active Scripts Ondansetron Hcl (ZOFRAN) 4 Mg Tablet, 4 MG PO Q4-6H PRN for prn, #20 TAB Prov:JULIAN DURÁN [employer] 07/07/18 Reported Medications Levothyroxine Sodium (LEVOTHYROXINE SODIUM) 100 Mcg Tablet, 100 MCG PO QDAY, TAB 07/07/18 [Vitamin B6] No Conflict Check, 50 MG PO DAILY 07/07/18 Butalb/Acetaminophen/Caffeine ([id number] CP) 1 Each Capsule, 1-2 CAP PO Q6H, #30 CAP 07/07/18 Diphenhydramine Hcl (UNISOM) 50 Mg Capsule, 50 MG PO HS, CAPSULE 07/07/18 [Tylenol Pm] No Conflict Check, PRN 07/07/18 Vits W-Ca,Fe,Fa(<1MG) ( VITAMINS) 1 Each Tablet, 1 EACH PO DAILY, TAB 07/07/18 Metoclopramide Hcl (METOCLOPRAMIDE HCL) 10 Mg Tablet, 10 MG PO Q6H PRN for NAUSEA 07/07/18 Discontinued Reported Medications Oxygen (OXYGEN) Inha, 2 L INH QHS, L 01/29/18 Sertraline Hcl (SERTRALINE HCL) 100 Mg Tablet, 1 TAB PO QDAY, TAB 01/29/18 Cholecalciferol (Vitamin D3) (VITAMIN D3) 1,000 Unit Tablet, 1000 UNIT PO QDAY, TAB 01/29/18 Topiramate (TOPIRAMATE) 50 Mg Tablet, 50 MG PO BID 11/12/16 Levothyroxine Sodium (LEVOTHYROXINE SODIUM) 75 Mcg Tablet, 75 MCG PO QDAY, TAB 07/27/16 Discontinued Scripts Tramadol Hcl (ULTRAM) 50 Mg Tablet, 50 MG PO Q6H PRN for PAIN, #8 TAB 0 Refills Prov:KANU ROLAND MD 02/12/18 Phenazopyridine Hcl (PHENAZOPYRIDINE HCL) 200 Mg Tablet, 200 MG PO TID PRN for PAIN, #10 TAB 0 Refills Prov:KANU ROLAND MD 02/12/18 Sulfamethoxazole/Trimet 800-160 Mg Tab (BACTRIM DS TABLET) 1 Each Tablet, 1 TAB PO Q12H, #14 TAB 0 Refills Prov:KANU ROLAND MD 02/12/18 Past Medical/Surgical History Patient has a past medical and surgical history of headaches, requires oxygen at night for "insomnia", asthma, chronic bloody and black stools, malleolus in cecum, ovarian cyst, right hip dislocation, arthritis in the back, right elbow fracture, broken tailbone, wears glasses and contacts, hypothyroidism, depression, suicide attempt, anxiety, PID, ankle surgery, tonsil and adenoidectomy. Reviewed Nurses Notes: Yes Hx Smoking: Yes (1/2 PPD X 5 YEARS) Smoking Status: Current: Every Day Smoker Exposure to Second Hand Smoke?: No Hx Substance Use Disorder: No Hx Alcohol Use: No Constitutional Vital Sign - Last 24 Hours 07/07/18 07/07/18 07/07/18 07/07/18 13:00 13:15 13:30 13:45 Temp 98.7 Pulse 96 89 89 Resp 16 B/P (MAP) 112/72 92/62 (72) Pulse Ox 94 93 92 92 O2 Delivery Room Air 07/07/18 07/07/18 07/07/18 14:00 14:15 14:45 Pulse 88 86 87 B/P (MAP) 97/50 (66) Pulse Ox 95 94 95 Physical Exam General Appearance: The patient is alert, has no immediate need for airway protection and no signs of toxicity. Eyes: Pupils equal and round no pallor or injection. ENT, Mouth: Mucous membranes are moist. Respiratory: There are no retractions, lungs are clear to auscultation. Cardiovascular: Regular rate and rhythm. Gastrointestinal: Abdomen is soft and non tender, no masses, bowel sounds normal. Skin: Warm and dry, no rashes. Musculoskeletal: Neck is supple non tender. Extremities are nontender, nonswollen and have full range of motion. DIFFERENTIAL DIAGNOSIS: After history and physical exam differential diagnosis was considered for nausea and vomiting including but not limited to gastroenteritis, hyperemesis gravidarum, gastritis, appendicitis, and medication side effect. Medical Decision Making Data Points Result Diagram: 07/07/18 1315 07/07/18 1315 Laboratory Hematology Test 07/07/18 13:15 Red Blood Count 3.90 M/uL (4.17-5.56) Mean Corpuscular Volume 95.7 fL (80.0-96.0) Mean Corpuscular Hemoglobin 33.2 pg (26.0-33.0) Mean Corpuscular Hemoglobin Concent 34.7 g/dL (32.0-36.0) Red Cell Distribution Width 13.9 % (11.5-14.5) Mean Platelet Volume 8.7 fL (7.2-11.1) Neutrophils (%) (Auto) 69.1 % (39.4-72.5) Lymphocytes (%) (Auto) 20.2 % (17.6-49.6) Monocytes (%) (Auto) 6.8 % (4.1-12.4) Eosinophils (%) (Auto) 2.3 % (0.4-6.7) Basophils (%) (Auto) 1.6 % (0.3-1.4) Nucleated RBC Relative Count (auto) 0.0 /100WBC Neutrophils # (Auto) 6.4 K/uL (2.0-7.4) Lymphocytes # (Auto) 1.9 K/uL (1.3-3.6) Monocytes # (Auto) 0.6 K/uL (0.3-1.0) Eosinophils # (Auto) 0.2 K/uL (0.0-0.5) Basophils # (Auto) 0.1 K/uL (0.0-0.1) Nucleated RBC Absolute Count (auto) 0.00 K/uL Urine Color Yellow Urine Clarity Cloudy Urine pH 7.0 pH (4.8-9.5) Urine Specific [place] 1.014 Urine Protein Negative mg/dL (NEGATIVE) Urine Glucose (UA) Negative mg/dL (NEGATIVE) Urine Ketones Negative mg/dL (NEGATIVE) Urine Blood Small (NEGATIVE) Urine Nitrite Negative (NEGATIVE) Urine Bilirubin Negative (NEGATIVE) Urine Urobilinogen Negative mg/dL (0.2-1.9) Urine Leukocyte Esterase Negative (NEGATIVE) Urine RBC 9 /HPF (0-2/HPF) Urine WBC None /HPF (0-5/HPF) Urine Squamous Epithelial Cells Many /LPF (</=FEW) Urine Amorphous Crystals Moderate /HPF Urine Bacteria Negative /HPF (NONE-FEW) Urine Mucus None /HPF (NONE-FEW) Sodium Level 134 mmol/L (137-145) Potassium Level 3.8 mmol/L (3.5-5.0) Chloride Level 103 mmol/L (98-107) Carbon Dioxide Level 21 mmol/L (22-31) Blood Urea Nitrogen 8 mg/dl (7-18) Creatinine 0.50 mg/dl (0.52-1.04) Glomerular Filtration Rate Calc > 60.0 Random Glucose 98 mg/dl (75-110) Calcium Level 9.2 mg/dl (8.4-10.2) Total Bilirubin 0.1 mg/dl (0.2-1.3) Aspartate Amino Transf (AST/SGOT) 16 U/L (0-35) Alanine Aminotransferase (ALT/SGPT) 14 U/L (0-56) Alkaline Phosphatase 78 U/L (0-126) Total Protein 7.1 g/dl (6.3-8.2) Albumin 4.0 g/dl (3.5-5.0) Chemistry Test 07/07/18 13:15 White Blood Count 9.3 k/uL (4.5-11.0) Red Blood Count 3.90 M/uL (4.17-5.56) Hemoglobin 13.0 g/dL (12.0-16.0) Hematocrit 37.4 % (34.0-47.0) Mean Corpuscular Volume 95.7 fL (80.0-96.0) Mean Corpuscular Hemoglobin 33.2 pg (26.0-33.0) Mean Corpuscular Hemoglobin Concent 34.7 g/dL (32.0-36.0) Red Cell Distribution Width 13.9 % (11.5-14.5) Platelet Count 247 K/uL (150-450) Mean Platelet Volume 8.7 fL (7.2-11.1) Neutrophils (%) (Auto) 69.1 % (39.4-72.5) Lymphocytes (%) (Auto) 20.2 % (17.6-49.6) Monocytes (%) (Auto) 6.8 % (4.1-12.4) Eosinophils (%) (Auto) 2.3 % (0.4-6.7) Basophils (%) (Auto) 1.6 % (0.3-1.4) Nucleated RBC Relative Count (auto) 0.0 /100WBC Neutrophils # (Auto) 6.4 K/uL (2.0-7.4) Lymphocytes # (Auto) 1.9 K/uL (1.3-3.6) Monocytes # (Auto) 0.6 K/uL (0.3-1.0) Eosinophils # (Auto) 0.2 K/uL (0.0-0.5) Basophils # (Auto) 0.1 K/uL (0.0-0.1) Nucleated RBC Absolute Count (auto) 0.00 K/uL Urine Color Yellow Urine Clarity Cloudy Urine pH 7.0 pH (4.8-9.5) Urine Specific [place] 1.014 Urine Protein Negative mg/dL (NEGATIVE) Urine Glucose (UA) Negative mg/dL (NEGATIVE) Urine Ketones Negative mg/dL (NEGATIVE) Urine Blood Small (NEGATIVE) Urine Nitrite Negative (NEGATIVE) Urine Bilirubin Negative (NEGATIVE) Urine Urobilinogen Negative mg/dL (0.2-1.9) Urine Leukocyte Esterase Negative (NEGATIVE) Urine RBC 9 /HPF (0-2/HPF) Urine WBC None /HPF (0-5/HPF) Urine Squamous Epithelial Cells Many /LPF (</=FEW) Urine Amorphous Crystals Moderate /HPF Urine Bacteria Negative /HPF (NONE-FEW) Urine Mucus None /HPF (NONE-FEW) Glomerular Filtration Rate Calc > 60.0 Calcium Level 9.2 mg/dl (8.4-10.2) Total Bilirubin 0.1 mg/dl (0.2-1.3) Aspartate Amino Transf (AST/SGOT) 16 U/L (0-35) Alanine Aminotransferase (ALT/SGPT) 14 U/L (0-56) Alkaline Phosphatase 78 U/L (0-126) Total Protein 7.1 g/dl (6.3-8.2) Albumin 4.0 g/dl (3.5-5.0) Urinalysis Test 07/07/18 13:15 Urine Color Yellow Urine Clarity Cloudy Urine pH 7.0 pH (4.8-9.5) Urine Specific [place] 1.014 Urine Protein Negative mg/dL (NEGATIVE) Urine Glucose (UA) Negative mg/dL (NEGATIVE) Urine Ketones Negative mg/dL (NEGATIVE) Urine Blood Small (NEGATIVE) Urine Nitrite Negative (NEGATIVE) Urine Bilirubin Negative (NEGATIVE) Urine Urobilinogen Negative mg/dL (0.2-1.9) Urine Leukocyte Esterase Negative (NEGATIVE) Urine RBC 9 /HPF (0-2/HPF) Urine WBC None /HPF (0-5/HPF) Urine Squamous Epithelial Cells Many /LPF (</=FEW) Urine Amorphous Crystals Moderate /HPF Urine Bacteria Negative /HPF (NONE-FEW) Urine Mucus None /HPF (NONE-FEW) ED Course/Re-evaluation Clinical Indication for ER IV: Hydration, IV Access ED Course The patient was admitted to room. A history and physical were obtained. Differential diagnoses were considered. A 1 L normal saline bolus was given. A CBC, CMP, UA were collected. Laboratory studies unremarkable, blood noted in the urine, otherwise unremarkable, urine sent for culture. 4 mg IV Zofran given. Patient had improvement of her symptoms, patient states she would like to go home, I discussed following up with her primary care provider, CIVIL ENGINEERING PROJECT DESIGNER for her concerns of insomnia. Patient expressed understanding, was in agreement with this plan of care and discharged home. Decision to Disposition Date: Jul 07, 2018 Decision to Disposition Time: 14:36 Depart Departure Latest Vital Signs Vital Signs Date Time Temp Pulse Resp B/P (MAP) Pulse Ox O2 Delivery O2 Flow Rate FiO2 07/07/18 14:45 87 95 07/07/18 14:00 97/50 (66) 07/07/18 13:00 98.7 16 Room Air Impression: Primary Impression: Additional Impression: Nausea and vomiting Condition: Improved Disposition: HOME OR SELF-CARE Referrals: TAPAN MEYER MD (PCP) New Scripts Ondansetron Hcl (ZOFRAN) 4 Mg Tablet 4 MG PO Q4-6H PRN for prn, #20 TAB Prov: JULIAN DURÁNP-BC 07/07/18 Patient Instructions: Acute Nausea and Vomiting (ED), Clear Liquid Diet (ED), (ED) Additional Instructions: Clear liquid diet for the next 24 hours. Slowly progress into a soft diet. Take Zofran as needed for nausea and vomiting. Please contact your primary care provider within 3 days, follow up and talk with them about other medications they would recommend for insomnia during . Drink plenty of water. Return to the ER for any other concerns or worsening symptoms. Problem Qualifiers Primary Impression: Weeks of gestation: 13 weeks Qualified Codes: Z3A.13 - 13 weeks gestation of Additional Impression: Nausea and vomiting Vomiting type: unspecified Vomiting Intractability: non-intractable Qualified Codes: R11.2 - Nausea with vomiting, unspecified JULIAN DURÁN [employer]-BC Jul 07, 2018 13:00
[2018-07-07] MEDS ORDERED: VITAMIN B6 PO (13:08)
[2018-07-07] MEDS ORDERED: DIPH-911 PO (13:08)
[2018-07-07] MEDS ORDERED: BUTA1CAP2 PO (13:08)
[2018-07-07] MEDS ORDERED: PREN-127 PO (13:08)
[2018-07-07] MEDS ORDERED: METO-224 PO (13:08)
[2018-07-07] MEDS ORDERED: LEVO-3 PO (13:08)
[2018-07-07] MEDS ORDERED: TYLENOL PM (13:08)
[2018-07-07] MEDS ORDERED: NS(*) 0.9% 1000 ML BAG 1,000 ML IV ONE (13:20)
[2018-07-07] MEDS ORDERED: ONDANSETRON 4 MG/2 ML VIAL IVP ONE (13:20)
[2018-07-07 13:28] LABS: PLATELET COUNT, AUTOMATED 247 K/uL (150-450)
[2018-07-07 14:00] VITALS: BP 97/50
[2018-07-07] MEDS ORDERED: ONDA4TAB97 PO (14:39)
== END 2018-07-07 14:55 | disposition home or self-care (01) ==
LOC: ER 13:09
DX: O21.9 Vomiting of pregnancy, unspecified (principal); Z3A.13 13 weeks gestation of pregnancy
CPT/HCPCS: 81001; 85025; 87088; 96361; 96374; 99283; J2405; J7030; 82040; 82247; 82310; 82374; 82435; 82565; 82947; 84075; 84132; 84155; 84295; 84450; 84460; 84520

== ENCOUNTER 2018-12-05 11:45 | Emergency (ER) | payer MEDICAID ==
[~2018-12-05 11:45] MED LIST changes: +BUTA1CAP2 PO; +DIPH-911 PO; +METO-224 PO; +TYLENOL PM; +VITAMIN B6 PO
--- NOTE | 2018-12-05 12:10 | ER Report ---
History and Physical Time Seen By MD: 12:06 Hx. of Stated Complaint: pain with urination HPI/ROS CHIEF COMPLAINT: Possible UTI HISTORY OF PRESENT ILLNESS: This is a 28-year-old female presents to the emergency department for a possible urinary tract infection. Patient states she noticed a "foul smelling odor coming from her urine yesterday, this morning the 1st urine was very painful, she said she's binging [place]ilo plain water yesterday and through this morning however it does not seem to be helping her symptoms. Denies flank pain. Patient is a , 35 weeks , babies moving, she states no complications or vaginal discharge. No bleeding. No fevers or chills. No other complaints. REVIEW OF SYSTEMS: Respiratory: No cough, no dyspnea. Cardiovascular: No chest pain, no palpitations. Gastrointestinal: No vomiting, no abdominal pain. SAFETY DEPOSIT CLERK: As above. Genitourinary: As above. Musculoskeletal: No back pain. Allergies: Coded Allergies: promethazine (Verified Allergy, Intermediate, RASH, 07/07/18) latex (Verified Allergy, Mild, RASH, 07/07/18) pertussis vaccine,fluid (Verified Adverse Reaction, Intermediate, PAIN/FEVER, 07/07/18) Home Meds Active Scripts Phenazopyridine Hcl (PHENAZOPYRIDINE HCL) 200 Mg Tablet, 200 MG PO TID, #5 TAB Prov:JULIAN DURÁN [facility] 12/05/18 Cephalexin 500 Mg Tab (KEFLEX 500 MG TAB) 500 Mg Tablet, 500 MG PO Q12H for 5 Days, #14 TAB Prov:JULIAN DURÁN [facility] 12/05/18 Ondansetron Hcl (ZOFRAN) 4 Mg Tablet, 4 MG PO Q4-6H PRN for prn, #20 TAB Prov:JULIAN DURÁN [facility] 07/07/18 Reported Medications Levothyroxine Sodium (LEVOTHYROXINE SODIUM) 100 Mcg Tablet, 100 MCG PO QDAY, TAB 07/07/18 [Vitamin B6] No Conflict Check, 50 MG PO DAILY 07/07/18 Butalb/Acetaminophen/Caffeine ([id number]-[id number]-HGZL CP) 1 Each Capsule, 1-2 CAP PO Q6H, #30 CAP 07/07/18 Diphenhydramine Hcl (UNISOM) 50 Mg Capsule, 50 MG PO HS, CAPSULE 07/07/18 [Tylenol Pm] No Conflict Check, PRN 07/07/18 Vits W-Ca,Fe,Fa(<1MG) ( VITAMINS) 1 Each Tablet, 1 EACH PO DAILY, TAB 07/07/18 Metoclopramide Hcl (METOCLOPRAMIDE HCL) 10 Mg Tablet, 10 MG PO Q6H PRN for NAUSEA 07/07/18 Past Medical/Surgical History The patient has a past medical and surgical history of headaches, uses oxygen at night for "insomnia", uses a rescue inhaler, history of bloody stools, sacral volvulus, ovarian cyst, dislocated hip, arthritis, right elbow fracture, broken tailbone, wears glasses, hypothyroidism, depression, previous suicide attempt, IUD, tendon repair, tonsils and adenoidectomy. Reviewed Nurses Notes: Yes Hx Smoking: Yes (1/2 PPD X 5 YEARS) Smoking Status: Current: Every Day Smoker Exposure to Second Hand Smoke?: No Hx Substance Use Disorder: No Hx Alcohol Use: No Constitutional Vital Sign - Last 24 Hours 12/05/18 12/05/18 12/05/18 12/05/18 12:00 12:05 12:30 13:00 Temp 98.0 Pulse 106 104 96 97 Resp 16 B/P (MAP) 115/78 (90) 115/78 116/80 (92) 112/84 (93) Pulse Ox 94 93 96 96 O2 Delivery Room Air Physical Exam General Appearance: The patient is alert, has no immediate need for airway protection and no current signs of toxicity. Eyes: Pupils equal and round no injection. Respiratory: Chest is non tender, lungs are clear to auscultation. Cardiac: regular rate and rhythm. Gastrointestinal: Abdomen is round, soft and non tender, no masses, bowel sounds normal. Musculoskeletal: Neck: Neck is supple and non tender. Extremities have full range of motion and are non tender. Skin: No rashes or lesions. DIFFERENTIAL DIAGNOSIS: After history and physical exam differential diagnosis was considered for urinary tract infection, labor pains. Medical Decision Making Data Points Laboratory Urinalysis Test 12/05/18 11:55 Urine Color Yellow Urine Clarity Slightly-cloudy Urine pH 7.0 pH (4.8-9.5) Urine Specific [place] 1.019 Urine Protein Negative mg/dL (NEGATIVE) Urine Glucose (UA) Negative mg/dL (NEGATIVE) Urine Ketones Negative mg/dL (NEGATIVE) Urine Blood Large (NEGATIVE) Urine Nitrite Negative (NEGATIVE) Urine Bilirubin Negative (NEGATIVE) Urine Urobilinogen Negative mg/dL (0.2-1.9) Urine Leukocyte Esterase Trace (NEGATIVE) Urine RBC 395 /HPF (0-2/HPF) Urine WBC 5 /HPF (0-5/HPF) Urine Squamous Epithelial Cells Many /LPF (</=FEW) Urine Transitional Epithelial Cells Few /LPF (NONE-FEW) Urine Bacteria Few /HPF (NONE-FEW) Urine Hyaline Casts Few /LPF (NONE-FEW) Urine Mucus Few /HPF (NONE-FEW) ED Course/Re-evaluation ED Course The patient was admitted to room. A history and physical obtained. Differential diagnoses were considered. A UA was collected, showing UTI, the patient is symptomatic will treat with Keflex. Patient was also given Pyridium. She has a follow-up appointment with Dr. Barrett this coming Friday, she will take the medications as prescribed. Patient had no other questions or concerns at this time discharged home. Decision to Disposition Date: Dec 05, 2018 Decision to Disposition Time: 12:58 Depart Departure Latest Vital Signs Vital Signs Date Time Temp Pulse Resp B/P (MAP) Pulse Ox O2 Delivery O2 Flow Rate FiO2 12/05/18 13:00 97 112/84 (93) 96 12/05/18 12:05 98.0 16 Room Air Impression: Primary Impression: Urinary tract infection Condition: Improved Disposition: HOME OR SELF-CARE Referrals: JESSICA BARRETT MD (PCP) 1 Week New Scripts Phenazopyridine Hcl (PHENAZOPYRIDINE HCL) 200 Mg Tablet 200 MG PO TID, #5 TAB Prov: JULIAN DURÁN [employer]- 12/05/18 Cephalexin 500 Mg Tab (KEFLEX 500 MG TAB) 500 Mg Tablet 500 MG PO Q12H for 5 Days, #14 TAB Prov: JULIAN DURÁN [facility]- 12/05/18 Patient Instructions: Urinary Tract Infection in (ED) Additional Instructions: Take the antibiotics as prescribed. Take the Pyridium as needed. Follow-up with your SAFETY DEPOSIT CLERK next week for reevaluation. Drink plenty of water. Get plenty of rest. Return to ER for any concerns or worsening symptoms per Problem Qualifiers Primary Impression: Urinary tract infection Urinary tract infection type: acute cystitis Hematuria presence: with hematuria Qualified Codes: N30.01 - Acute cystitis with hematuria JULIAN DURÁN-CONY Dec 05, 2018 12:10
--- NOTE | 2018-12-05 12:40 | NUR ---
NST OBTAINED. US EXTERNAL HR 135 WITH MODERATE VARIABILITY CATEGORY I STIP NOTED WITH 15X15 ACCLES PRESENT. EXTERNAL TOCO NO CONTRACTIONS NOTED. ABD PALPATES SOFT. PT DENIES CONTRACTIONS OR CRAMPING. Addendum: 12/05/18 at 1352 by JORGE Mayo RN NO VARIABLES NOTED
[2018-12-05] MEDS ORDERED: CEPH500T7 PO (12:59)
[2018-12-05 13:00] VITALS: BP 112/84
[2018-12-05] MEDS ORDERED: PHEN200T32 PO (13:01)
== END 2018-12-05 13:08 | disposition home or self-care (01) ==
LOC: ER 12:27
DX: O23.43 Unspecified infection of urinary tract in pregnancy, third trimester (principal); Z3A.35 35 weeks gestation of pregnancy
CPT/HCPCS: 81001; 87088; 99283

== ENCOUNTER 2018-12-07 23:10 | Outpatient (CLI) | payer MEDICAID ==
[~2018-12-07] VITALS: Ht 152.4 cm; Wt 98.9 kg
[2018-12-07 22:30] VITALS: BP 144/74; Ht 152.4 cm; Wt 98.9 kg
[2018-12-07] MEDS ORDERED: LR(*) 1000 ML BAG 1,000 ML IV PRN (23:14)
[2018-12-07] MEDS ORDERED: cefTRIAXone 1 GM VIAL IVP ONE (23:50)
[2018-12-08 00:19] LABS: PLATELET COUNT, AUTOMATED 247 K/uL (150-450)
[2018-12-08] MEDS ORDERED: FERR-53 PO (00:31)
== END 2018-12-08 00:39 | disposition home or self-care (01) ==
LOC: OB 23:10 → UNDOADMOB 23:10 → L&D 23:10 → UNDODISOB 12-08 00:39 → EDSTATUS 12-14 14:28
PROVIDERS: ATTEND Obstetrics & Gynecology
DX: O26.893 Other specified pregnancy related conditions, third trimester (principal); Z3A.36 36 weeks gestation of pregnancy; R35.0 Frequency of micturition
CPT/HCPCS: 59025; 85025; 87088; G0463; J0696; J7120; 99213; G0378; G0379

== ENCOUNTER 2018-12-24 01:35 | Inpatient (IN) | payer MEDICAID ==
[~2018-12-24] VITALS: Ht 152.4 cm; Wt 97.1 kg
[~2018-12-24 01:35] MED LIST changes: +FERR-53 PO
[2018-12-24] MEDS ORDERED: FENTANYL/ROPIVACAINE 100 ML BAG EPI PRN (02:00)
[2018-12-24] MEDS ORDERED: BUPIVACAINE 0.25% MPF INJ EPI PRN (02:00)
[2018-12-24] MEDS ORDERED: LIDOCAINE/PF 2% 200MG/10ML AMP 200 MG/10 ML AMPUL EPI PRN (02:00)
[2018-12-24] MEDS ORDERED: BUPIVACAINE 0.5% INJ 30ML VIAL EPI PRN (02:00)
[2018-12-24] MEDS ORDERED: fentaNYL CITR 100 MCG/2 ML AMP IT PRN (02:00)
[2018-12-24] MEDS ORDERED: LIDO/EPI 2% MPF 1:200,000 20ML EPI PRN (02:00)
[2018-12-24] MEDS: LR(*) 1000 ML BAG 1,000 ML IV PRN ×3 (02:03→09:17)
[2018-12-24] MEDS ORDERED: ePHEDrine 25 MG/5 ML DISP.SYR IVP ONE (02:08)
[2018-12-24] MEDS ORDERED: OXYTOCIN 30 UNIT/NS 500 ML 500 ML ONE (02:08)
[2018-12-24 02:15] LABS: PLATELET COUNT, AUTOMATED 215 K/uL (150-450)
[2018-12-24] MEDS ORDERED: PHENYLEPHRINE 10 MG/1 ML VIAL ONE (03:21)
[2018-12-24] MEDS ORDERED: NS(*) 0.9% 100 ML BAG 100 ML ONE (03:21)
--- NOTE | 2018-12-24 03:46 | Anesthesia OB Pre-Anes Eval ---
History of Present Illness Anesthesia Start Date: Dec 24, 2018 Anesthesia Start Time: 02:25 OB Anesthesia Diagnosis: spontaneous labor Current Complication: obesity EDC: Dec 31, 2018 : 2 Para: 1 Vital Signs: BP: 126/78, HR: 84, O2sat: 95% RA, RR: 20, Pain Ratin Heart Tones: Normal Result Diagram: 12/24/18 0200 Height (Inches): 62 Weight (Pounds): 218 BMI (kg/m2): 42 Past Medical History Medical History: obesity, asthma, other (Hypothyroid, ADHD, Depression, UTIs, Migraines, Prior Vaper, Iron Deficiency Anemia (currently normal Hct)) Surgical History: noncontributory, tonsillectomy, other (Right Ankle) Previous Anesthesia: general, epidural Hx Anesthesia Reactions: No Hx Family Anesthesia Reaction: No Home Meds Active Scripts Cephalexin 500 Mg Tab (KEFLEX 500 MG TAB) 500 Mg Tablet, 500 MG PO Q12H for 5 Days, #14 TAB Prov:JULIAN DURÁN [employer]-BC 12/05/18 Reported Medications Ferrous Sulfate (FERROUS SULFATE) 325 Mg Tablet, 325 MG PO BID 12/08/18 Levothyroxine Sodium (LEVOTHYROXINE SODIUM) 100 Mcg Tablet, 100 MCG PO QDAY, TAB 07/07/18 Vits W-Ca,Fe,Fa(<1MG) ( VITAMINS) 1 Each Tablet, 1 EACH PO DAILY, TAB 07/07/18 Metoclopramide Hcl (METOCLOPRAMIDE HCL) 10 Mg Tablet, 10 MG PO Q6H PRN for NAUSEA 07/07/18 Allergies: Coded Allergies: promethazine (Verified Allergy, Intermediate, RASH, 07/07/18) latex (Verified Allergy, Mild, RASH, 07/07/18) pertussis vaccine,fluid (Verified Adverse Reaction, Intermediate, PAIN/FEVER, 07/07/18) Anesthesia OB ROS Neurological: No migraines/headaches, No seizures, No neuropathy, No other Contacts Statement: none ENT: Denies Tooth caps, Denies Loose teeth, Denies Chipped teeth, Denies Dentures, Denies Bridges, Denies Retainers, Denies Veneers, Denies Implants, Denies Tongue ring; Other (Large tongue) Pulmonary: asthma, smoker (pks/day/yrs) (Vape prior to ) Airway Class: lll (Large tongue, obesity, MO=4cm, TM distance= 4cm) Cardiovascular ROS: edema (1-2+ LE edema with ); No arrhythmia, No other GI ROS: NPO Last Solids Date: Dec 23, 2018 Last Solids Time: 22:00 ROS: No Herpes, No STD(s), No Liver Disease, No Renal Disease, No Other Endocrine ROS: No diabetes, No gestational diabetes; thyroid disorder; No other Musculoskeletal ROS: No low back pain, No low back injury, No scoliosis, No other ASA Classification: 3 (ASA 3 d/t BMI of 40) Assessment and Plan Anesthesia Plan: LEB Assessment: Unable to palpate landmarks well for epidural placement due to obesity. But able to locate some landmarks with epidural needle (see placement note) Assessment Heart: RRR, no MRG, no syncope, no CP/SOB, 1-2+ LE edema Resp: CTA bilaterally Neuro: normal VERONICA SANDHU CRNA Dec 24, 2018 03:46
--- NOTE | 2018-12-24 03:59 | Procedure Note ---
Anesthetic Placement Note Anesthesia Plan: LEB Permit for Anesthesia Signed: Yes Anesthesia Technique: Patient Sitting Anesthesia Prep: Chlorhexidine (Betadine also used since no tint/dye in chlorhexidine) Interspace: L 3-4 Local Anesthetic: 1% Lidocaine, 25 Gauge Needle Amount Local - cc's: 2.5 Anesthesia Needle: 17g Touhy/Schliff Anesthesia Attempts: 1 (superficial landmarks difficult to palpate d/t obesity. But able to locate space with epidural needle on first attempt) Loss of Resistance: Normal Saline Depth of NAT (cm): 6 Epidural Needle Placement: No CSF, No Blood, No Parasthesia Catheter Insertion (cm): 6 Catheter Type: Rapp - Spring Wound (Taped clamp connector shut) Epidural Dressing: Tegaderm, Tape (Mefix), Other (Benzoin) Anesthesia Tray: Lot Number ([id number]), Expiration Date (11/09/2019), Reference Number ([id number]) Comment: Tolerated well, cooperated well Anesthesia Medications: Epidural Test Dose: 1.5 Lido/Epi (1:200,000), Dose - mL (3), Time (0245), Negative Epidural Loading Dose: Dose - ml (7), Time (0247), Other (0.5% lidocaine) Epidural Infusion: 0.2% Ropivicaine, With Fentanyl 2mcg/ml, Start Time: (0300), Other (6 mL of infusion solution given at time of pump start) Epidural Pump Setting: Bolus Dose - mL (6), Lockout - Minutes (15), Maintenance Rate - mL/hr (5), Maximum per Hour - mL (23) Complications: None Comment: Patient instructed on use of PCEA button. Also instructed on signs or symptoms of complications/when to notify RN or anesthesia provider. Verbalizes understa VERONICA Lei [employer] EQUIPMENT OPERATOR Dec 24, 2018 03:59
[2018-12-24 05:02] VITALS: BP 148/71; Ht 152.4 cm; Wt 97.1 kg
--- NOTE | 2018-12-24 09:00 | History & Physical ---
History of Present Illness Age of Patient: 28 : 2 Para or TPAL: 1 EDC per LMP: Jan 07, 2019 Estimated Gestational Age: 38.0 Chief Complaint Labor History of Present Illness Presents with report of contractions yesterday and last night worsening over time. She was 3 cm in the office a few days ago. complicated by dep ression ans was taking Sertraline early but stopped when discovered her . She is hypothyroid and controlled on Levothyroxine. She has migraines and takes amitriptyline for prevention but has not used this during the . Past Medical, Surgical, Family and Obstetric Histories reviewed. Please see [facility] [place] chart. History Allergies: Coded Allergies: promethazine (Verified Allergy, Intermediate, RASH, 07/07/18) latex (Verified Allergy, Mild, RASH, 07/07/18) pertussis vaccine,fluid (Verified Adverse Reaction, Intermediate, PAIN/FEVER, 07/07/18) Med Rec Home Meds Active Scripts Cephalexin 500 Mg Tab (KEFLEX 500 MG TAB) 500 Mg Tablet, 500 MG PO Q12H for 5 Days, #14 TAB Prov:JULIAN DURÁN BENCH CARPENTER-BC 12/05/18 Reported Medications Ferrous Sulfate (FERROUS SULFATE) 325 Mg Tablet, 325 MG PO BID 12/08/18 Levothyroxine Sodium (LEVOTHYROXINE SODIUM) 100 Mcg Tablet, 100 MCG PO QDAY, TAB 07/07/18 Vits W-Ca,Fe,Fa(<1MG) ( VITAMINS) 1 Each Tablet, 1 EACH PO DAILY, TAB 07/07/18 Metoclopramide Hcl (METOCLOPRAMIDE HCL) 10 Mg Tablet, 10 MG PO Q6H PRN for NAUSEA 07/07/18 Review of Systems All Systems Reviewed/Normal: Yes, Except as Noted Exam General Exam Vital Signs Vital Signs Date Time Temp Pulse Resp B/P (MAP) Pulse Ox O2 Delivery O2 Flow Rate FiO2 12/24/18 05:02 97.5 73 22 148/71 (96) 97 Room Air General Apperance: Alert/Awake/No Acute Distress Neuro: No Gross deficits Eyes: Normal Extraocular Movement & Vison Cardiovascular: Regular Rate and Rhythm Respiratory: No Respiratory Distress, Clear to Auscultation Abdomen: Soft, Non-Tender, Non-Distended Extremities: No Cyanosis,Clubbing or Edema Integumentary: Skin Intact without Lesions or Rash Psychological: Alert & Oriented X3, Appropriate Mood & Affect Vaginal Discharge/Fluid?: Bloody Show Cervical Dialation: 6 Cervical Effacement (%): 100 Cervical Consistency: Soft Cervical Position: Anterior Station: -2 Presentation: Vertex Fetus Heart Tone Variabilty: Moderate FHT Accelerations: 15X15 FHT Category: I Medical Decision Making Data Points Result Diagram: 12/24/18 0200 VTE Prophylasis: Adult Deep Vein Thrombosis/Pulmonary: No Pharmacological Contraindicati: Pt at Low Risk for VTE Mechanical Contraindications: Pt at Low Risk for VTE 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 AROM with clear fluid noted. Expecting . JESSICA CHOU MD Dec 24, 2018 08:59
[2018-12-24] MEDS ORDERED: GLYCERIN/WITCH HAZEL LEAF 1 PK TP PRN (13:40)
[2018-12-24] MEDS ORDERED: LANOLIN OINT 7 GM TUBE TP PRN (13:40)
[2018-12-24] MEDS ORDERED: DIPHTH/TETANUS/ACEL. PERTUSSIS IM ONE (13:40)
[2018-12-24] MEDS ORDERED: HYDROCORTISONE 2.5% CR 30GM TB PR PRN (13:40)
[2018-12-24] MEDS ORDERED: BENZOCAINE 20% 60 ML BTL TP PRN (13:40)
[2018-12-24] MEDS ORDERED: MAGNESIUM HYDROXIDE* 30ML UDCP PO PRN (13:40)
[2018-12-24] MEDS ORDERED: INFLUENZA VIRUS VAC 0.5ML SYR IM ONLY ONE (13:40)
[2018-12-24] MEDS ORDERED: ACETAMINOPHEN 325 MG TAB PO PRN (13:40)
--- NOTE | 2018-12-24 13:46 | OB Delivery Note ---
Delivery Note Vaginal Delivery Type: Spont. Vaginal Delivery Delivery Date: Dec 24, 2018 Delivery Time: 13:41 Estimated Gestational Age(wks): 38.0 Delivery Anesthesia: Epidural Sex: Female Infant Weight (gms): 3050 Apgars: 1 Minute (9), 5 Minute (10) Repair Needed: Laceration, 2nd Degree Estimated Blood Loss: 300 Notes: Presented in labor at 5 cm. Contractions spaced out initially but 6 cm at 0809 and required Pitocin to augment. Complete at 1308. Assembled for delivery and over one contraction with pushes, delivery over second degree laceration. Shoulders delivered spontaneously not requiring any manipulation. Placenta delivered spontaneous and intact. Repair with 2-0 Chromic with excellent result. No complications. It Administrator in Attendence: No Copies to: JESSICA CHOU MD ; JESSICA CHOU MD Dec 24, 2018 13:46
--- NOTE | 2018-12-24 14:07 | Anesthesia Progress Note ---
Progress/Maintenance Anesthesia Note Date: Dec 24, 2018 Anesthesia Note Time: 10:10 Pain Intensity: 1 Pump: On Pump Rate (ML/HR): 5 Sensory Level: T7-8 Motor Level: Bending Knees-Bilateral Position: Left Assessment and Plan Anesthesia Plan: LEB Assessment: Epidural working well per patient VERONICA SANDHU CRNA Dec 24, 2018 14:07
--- NOTE | 2018-12-24 14:10 | Anesthesia Progress Note ---
Progress/Maintenance Anesthesia Note Date: Dec 24, 2018 Anesthesia Note Time: 13:52 Pain Intensity: 0 Pump: Off Sensory Level: mixed Motor Level: Bending Knees-Bilateral (Motor and sensory mostly returned) Assessment and Plan Assessment: Epidural worked well during labor and delivery per patient. Delivery at 1318. Anesthesia Stop Day: Dec 24, 2018 Anesthesia Stop Time: 13:18 Epidural Catheter Removal: Removed Catheter Intact, Yes, Removed by: (Cyrus Sandhu CRNA) Removal Date: Dec 24, 2018 Removal Time: 13:51 CYRUS SANDHU CRNA Dec 24, 2018 14:10
[2018-12-24 16:30] VITALS: BP 105/54
[2018-12-24] MEDS: IBUPROFEN 800 MG TAB PO SCH (17:00)
[2018-12-24 19:16] VITALS: BP 137/68
[2018-12-24] MEDS: DOCUSATE CALCIUM 240 MG CAP PO SCH (23:05)
[2018-12-24] MEDS: APAP/HYDROCODONE 325/5 TAB PO PRN (23:05)
[2018-12-24 23:18] VITALS: BP 128/60
[2018-12-25] MEDS: APAP/HYDROCODONE 325/5 TAB PO PRN (02:52)
[2018-12-25] MEDS: IBUPROFEN 800 MG TAB PO SCH ×2 (02:52→12:00)
[2018-12-25 05:00] VITALS: BP 113/61
[2018-12-25 07:21] VITALS: BP 113/79
--- NOTE | 2018-12-25 08:26 | OB/GYN Progress Note ---
OB Subjective Progress Notes Subjective Feeling better. Was in a lot of pain yesterday but wasn't taking her pain medication for fear of constipation. GI: NEG Nausea : Voiding Well Pain: Mild OB Objective Physical Exam Vital Signs Date Time Temp Pulse Resp B/P (MAP) Pulse Ox O2 Delivery O2 Flow Rate FiO2 12/25/18 05:00 97.0 78 18 113/61 (78) 95 Room Air Intake and Output 12/25/18 07:04 Intake Total 2640 ml Output Total 2650 ml Balance -10 ml Intake Oral 640 ml IV Total 2000 ml Output Urine Total 2650 ml # Voids 1 General Appearance: Alert/Awake/No Acute Distress Neurological: No Gross deficits Eyes: Normal Extraocular Movement & Vison Cardiovascular: Normal Rhythm & Peripheral Pulses, Regular Rate and Rhythm Respiratory: No Respiratory Distress, Clear to Auscultation Abdomen: Soft, Non-Tender, Non-Distended, Fundus Firm, Non-Tender Incision: Clean, Dry, Intact, Dermabond Extremities: No Cyanosis,Clubbing or Edema Integumentary: Skin Intact without Lesions or Rash Psychological: Alert & Oriented X3, Appropriate Mood & Affect Result Diagram: 12/25/18 0600 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 Home later today. Reviewed discharge instructions and precautions. Questions answered. (4) care and examination immediately after delivery JESSICA CHOU MD Dec 25, 2018 08:26
[2018-12-25] MEDS ORDERED: LOR5/325 PO (08:30)
[2018-12-25] MEDS ORDERED: IBUP800T37 PO (08:30)
--- NOTE | 2018-12-25 08:32 | Short(Outpt) Discharge Summary ---
Discharge Summary Reason for Hosp/Final Diag: (1) 38 weeks gestation of (2) Normal labor (3) Other specified aftercare following surgery Hospital Course & Plan: Continue to ambulate. Home later today. Reviewed discharge instructions and precautions. Questions answered. (4) care and examination immediately after delivery Departure Discharge to: Home, Self Care Discharge Instructions Home Meds Active Scripts Hydrocodone Bit/Acetaminophen (HYDROCODON-ACETAMINOPHEN 5-325) 1 Each Tablet, 1- 2 EACH PO Q4H PRN for PAIN, #10 TAB 0 Refills Prov:JESSICA CHOU MD 12/25/18 Cephalexin 500 Mg Tab (KEFLEX 500 MG TAB) 500 Mg Tablet, 500 MG PO Q12H for 5 Days, #14 TAB Prov:JULIAN DURÁN [employer] PROFESSOR- 12/05/18 Reported Medications Ferrous Sulfate (FERROUS SULFATE) 325 Mg Tablet, 325 MG PO BID 12/08/18 Levothyroxine Sodium (LEVOTHYROXINE SODIUM) 100 Mcg Tablet, 100 MCG PO QDAY, TAB 07/07/18 Vits W-Ca,Fe,Fa(<1MG) ( VITAMINS) 1 Each Tablet, 1 EACH PO DAILY, TAB 07/07/18 Metoclopramide Hcl (METOCLOPRAMIDE HCL) 10 Mg Tablet, 10 MG PO Q6H PRN for NAUSEA 07/07/18 Follow up Referrals: 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 Copies to: JESSICA CHOU MD ; JESSICA CHOU MD Dec 25, 2018 08:32
[2018-12-25] MEDS: DOCUSATE CALCIUM 240 MG CAP PO SCH (09:57)
[2018-12-25 11:55] VITALS: BP 123/51
[2018-12-25] MEDS ORDERED: MEASLES,MUMP,RUBELLA VAC 0.5ML SUBQ ONE (13:40)
== END 2018-12-25 15:55 | disposition home or self-care (01) | DRG 807 ==
LOC: OB 01:35
PROVIDERS: ADMIT Obstetrics & Gynecology; ATTEND Obstetrics & Gynecology
PROC: 10E0XZZ Delivery of Products of Conception, External Approach (ICD-10-PCS; principal; 2018-12-24)
PROC: 0KQM0ZZ Repair Perineum Muscle, Open Approach (ICD-10-PCS; 2018-12-24)
DX: O99.284 Endocrine, nutritional and metabolic diseases complicating childbirth (principal); Z37.0 Single live birth; O70.1 Second degree perineal laceration during delivery; O99.344 Other mental disorders complicating childbirth; O99.214 Obesity complicating childbirth; E66.9 Obesity, unspecified; F90.9 Attention-deficit hyperactivity disorder, unspecified type; F41.9 Anxiety disorder, unspecified; E03.9 Hypothyroidism, unspecified; Z3A.38 38 weeks gestation of pregnancy; Z87.440 Personal history of urinary (tract) infections; Z87.891 Personal history of nicotine dependence; Z91.040 Latex allergy status; Z88.6 Allergy status to analgesic agent; Z88.8 Allergy status to other drugs, medicaments and biological substances
CPT/HCPCS: 36415; 85025; 85027; 86703; 86850; 86900; 86901; J2370; J2590; J7050; J7120